=== PATIENT | female | born 1955 | race Caucasian/White ===

== ENCOUNTER 2020-01-20 15:45 | Emergency (ER) | payer OTHER, SELFPAY ==
[2020-01-20 16:20] VITALS: BP 215/117; PULSE 95; RESP 16; TEMP 36.7; O2SAT 98; BMI 35.2
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
[2020-01-20] MEDS: KETOROLAC 60 MG/2 ML VIAL 30 MG IM (17:31)
[2020-01-20] MEDS: CYCLOBENZAPRINE 10 MG TABLET PO (17:32)
[2020-01-20] MEDS: LIDOCAINE PATCH 1 EACH ADH..PATCH TOP (17:32)
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
[2020-01-20 18:35] VITALS: BP 209/94; PULSE 70; RESP 16; O2SAT 97
[2020-01-20 18:50] VITALS: BP 180/78; PULSE 63; RESP 16; O2SAT 98
--- NOTE | 2020-01-20 18:56 | PC.NURSE ---
Mariam Allen aware of discharge vital signs
== END 2020-01-20 18:56 | disposition home or self-care (01) ==
PROVIDERS: Emergency Provider Nurse Practitioner Family
DX: M25.512 Pain in left shoulder (principal); M25.552 Pain in left hip; M53.3 Sacrococcygeal disorders, not elsewhere classified; M62.838 Other muscle spasm; V89.2XXA Person injured in unspecified motor-vehicle accident, traffic, initial encounter
CPT/HCPCS: 72220; 73030; 73502; 96372; 99283; 99284; J1885

== ENCOUNTER 2020-11-26 16:30 | Emergency (ER) | payer MEDICARE, SELFPAY ==
[2020-11-26] VITALS (14 sets, daily range): BP systolic 140–178; BP diastolic 67–94; PULSE 91–114; RESP 24; TEMP 36.6; O2SAT 91–99
--- NOTE | 2020-11-26 | DI.CT.S_ITS ---
PROCEDURE: CT ABDOMEN PELVIS W CON INDICATIONS: ABDOMINAL PAIN, N/V, NO FLATUS TECHNIQUE: After the administration of intravenous contrast, 5 mm thick sections acquired from the diaphragm to the symphysis. 5 mm coronal and sagittal reformats were acquired. For radiation dose reduction, the following was used: automated exposure control, adjustment of mA and/or kV according to patient size. COMPARISON: None. FINDINGS: Image quality: Excellent. ABDOMEN: Lung bases: Mild bibasilar dependent atelectasis are seen posteriorly. Heart size is normal. Solid organs: Liver is enlarged and show normal enhancement. Gallbladder is within normal limits. Biliary system is non dilated. Pancreas enhances normally. Spleen is enlarged and shows normal enhancement. No adrenal nodules. Kidneys demonstrate normal size and enhancement, without hydronephrosis. Peritoneum and bowel: There is no evidence of bowel obstruction. A small hiatal hernia is seen. Appendix is visualized and is within normal limits. No gastric or small bowel wall thickening. There is suggestion of ascending colon wall thickening and edema with mild pericolonic fat stranding extending to involve hepatic flexure and proximal to mid transverse colon suggestive of infectious or inflammatory colitis. No abscess collection. No free fluid or free air. Nodes and vessels: No retroperitoneal or mesenteric adenopathy by size criteria. Aorta and inferior vena cava are normal in size. Miscellaneous: No ventral hernias. PELVIS: Genitourinary: Bladder wall thickness is normal. Uterus and bilateral adnexa show no gross abnormality. Miscellaneous: No inguinal hernias or adenopathy. Bones: No suspicious bony lesions. No vertebral body compression fractures. IMPRESSION: 1. Finding is suggestive of mild infectious inflammatory colitis involving ascending colon and proximal to mid transverse colon. 2. No evidence of bowel obstruction. Normal appendix. No abscess collection. No free fluid or free air. 3. Hepatosplenomegaly, no discrete hepatic or splenic lesion. Dictated by: Jonas Quezada M.D. on 11/26/2020 at 18:26 Approved by: Jonas Quezada M.D. on 11/26/2020 at 18:29
--- NOTE | 2020-11-26 16:43 | DI.RAD.S_ITS ---
PROCEDURE: XR CHEST 1V INDICATIONS: suspected sepsis TECHNIQUE: One view of the chest was acquired. COMPARISON: None. FINDINGS: Surgical changes and devices: None. Lungs and pleura: Question small focal infiltrate, left lung base. No pleural effusions or pneumothorax. Mediastinum: Mediastinal contours appear normal. Heart size is normal. Bones and chest wall: No suspicious bony lesions. Overlying soft tissues appear unremarkable. IMPRESSION: Question small focal left basilar infiltrate. Comment: It is noted that the patient is scheduled for a CT of the abdomen and pelvis. This area in the left lung base will be visible on the CT images. Dictated by: Margarito Prieto M.D. on 11/26/2020 at 16:30 Approved by: Margarito Prieto M.D. on 11/26/2020 at 16:32
--- NOTE | 2020-11-26 17:01 | ED_ITS ---
HPI - Nausea/Vomiting/Diarrhea General Chief complaint: Nausea/Vomiting/Diarrhea Stated complaint: NO ENERGY LEFT SIDE PAIN NOT EATING Time Seen by Provider: 11/26/20 16:35 Source: patient Mode of arrival: Ambulatory Limitations: no limitations History of Present Illness HPI Narrative: 65-year-old female nonsmoker without any significant medical history presents with a chief complaint of 2 weeks of increasing nausea and vomiting each time she eats. She states that she has become increasingly weak and is now dizzy and lightheaded. Anything she eats or drinks comes up. This morning she developed some left flank pain that has been persistent. She denies any provocation, palliation or radiation of this discomfort. She has not had a bowel movement in 2 days and states that her urine has become dark. She denies any chest pain or shortness of breath. She has had no fever or shaking chills. She denies any surgeries on her abdomen or history of cancer. MD complaint: nausea, vomiting and abdominal pain Onset (ago): day(s) Description of Vomiting: food contents Description of Diarrhea: none Associated Abdominal Pain: Yes Location of pain: left flank Severity: moderate Quality: cramping Pain Consistency: constant Relieving factors: none Exacerbating factors: none Related Data Previous Rx's Medication Instructions Recorded cyclobenzaprine 10 mg PO TID PRN #20 tab 01/20/20 amoxicillin-pot clavulanate 1 tab PO BID #20 tab 11/26/20 [Augmentin] ondansetron 4 mg PO TID-QID PRN #10 tab 11/26/20 Allergies Allergy/AdvReac Type Severity Reaction Status Date / Time Sulfa (Sulfonamide Allergy Verified 01/24/20 09:46 Antibiotics) Review of Systems Constitutional Constitutional: Denies chills, Reports fatigue, Denies fever(s), Denies frequent falls, Denies lethargy and Reports weakness Eyes Eyes: Denies change in vision, Denies eye discharge, Denies irritation and Denies loss of vision ENT Ears, Nose, Mouth, and Throat: Denies change in voice, Denies dizziness, Denies neck pain, Denies sore throat and Denies throat swelling Cardiovascular Cardiovascular: Denies chest pain, Denies irregular heart rhythm, Denies lightheadedness, Denies palpitations, Denies dyspnea, Denies dyspnea on exertion and Denies orthopnea Respiratory Respiratory: Denies cough, Denies dyspnea, Denies dyspnea on exertion and Denies wheezing Gastrointestinal Gastrointestinal: Denies abdominal pain, Reports change in bowel habits, Denies diarrhea, Reports nausea and Reports vomiting Genitourinary Genitourinary: Reports flank pain Genitourinary: Reports flank pain Comments: Dark urine Musculoskeletal Musculoskeletal: Denies neck pain and Denies numbness Integumentary/Breasts Skin/Breast: Denies pruritus, Denies erythema, Denies rash and Denies wounds Neurologic Neurologic: Denies behavioral changes, Denies confusion, Denies dizziness, Denies frequent falls, Denies loss of vision, Denies numbness and Reports weakness Psychiatric Psychiatric: Denies anxiety, Denies behavioral changes, Denies confusion, Denies depression, Denies homicidal ideation and Denies suicidal ideation Endocrine Endocrine: Reports fatigue, Denies flushing and Denies palpitations Hematologic/Lymphatic Hematologic/Lymphatic: Denies easy bruising Allergic/Immunologic Allergic/Immunologic: Denies urticaria, Denies throat swelling and Denies wheezing Patient History Social History Smoking Status: Unknown if ever smoked Smoking Status: Unknown if ever smoked alcohol intake frequency: holidays/special occasions only Substance Use Type: does not use Exam Narrative Exam Narrative: GENERAL: [65] year old patient appears stated age. Well-nourishe d, well-developed patient, in mild distress. HEAD: Atraumatic. Normocephalic. EYES: Pupils equal round and reactive. Extraocular motions intact. No scleral icterus. No injection or drainage. ENT: Dry mucous membranes Nose without bleeding, purulent drainage. Throat without erythema, tonsillar hypertrophy or exudate. Airway patent. NECK: Trachea midline. Non tender CARDIOVASCULAR: Regular rate and rhythm without murmurs, gallops, or rubs. RESPIRATORY: Clear to auscultation. Breath sounds equal bilaterally. No wheezes, rales, or rhonchi. GASTROINTESTINAL: Abdomen soft, non-tender, nondistended. EXTREMITIES: No edema or joint tenderness. BACK: Left flank pain to palpation NEURO: AOx3. SKIN: No rash or erythema of visible areas Initial Vital Signs Initial Vital Signs: Vital Signs Temperature 97.8 F 11/26/20 16:33 Pulse Rate 114 H 11/26/20 16:33 Respiratory Rate 24 11/26/20 16:33 Blood Pressure 178/94 H 11/26/20 16:33 Pulse Oximetry 99 11/26/20 16:33 Course Course Course Narrative: patient feeling significant improvement after above stated therapies. She is tolerating orals. No signs of sepsis. Ambulating through department without trouble. Return precautions given and questions answered to her apparent satisfaction. Orders Ordered: Discontinued Medications Sodium Chloride (Normal Saline 0.9%) 1,000 mls @ 1,000 mls/hr IV BOLUS ONE Stop: 11/26/20 17:42 Last Admin: 11/26/20 17:13 Dose: 1,000 mls/hr Documented by: BTONER Sodium Chloride (Normal Saline 0.9%) 1,000 mls @ 1,000 mls/hr IV BOLUS ONE Stop: 11/26/20 17:50 Last Admin: 11/26/20 17:13 Dose: 1,000 mls/hr Documented by: BTONER Ondansetron HCl (Ondansetron 4 Mg/2 Ml Inj) 4 mg IV NOW ONE Stop: 11/26/20 16:52 Last Admin: 11/26/20 17:13 Dose: 4 mg Documented by: BTONER Vital Signs Vital signs: Vital Signs - 8 hr 11/26/20 16:33 11/26/20 16:47 11/26/20 17:00 Temperature 97.8 F Pulse Rate 114 H 109 H 105 H Respiratory Rate 24 Blood Pressure 178/94 H 147/80 H Pulse Oximetry 99 95 95 11/26/20 17:24 11/26/20 17:30 11/26/20 17:32 Temperature Pulse Rate 95 H Respiratory Rate Blood Pressure 168/75 H 148/69 H Pulse Oximetry 91 11/26/20 18:00 11/26/20 18:17 11/26/20 18:30 Temperature Pulse Rate 98 H 98 H Respiratory Rate Blood Pressure 163/67 H Pulse Oximetry 96 96 MDM - Nausea/Vomiting/Diarrhea Lab Data Result diagrams: 11/26/20 16:55 11/26/20 16:55 Labs: Lab Results 11/26/20 11/26/20 11/26/20 Range/Units 16:55 16:55 16:55 WBC 4.6 (4.5-11.0) X10^3/uL RBC 5.38 H (4.0-5.2) X10^6/uL Hgb 14.5 (12.0-16.0) g/dL Hct 43.0 (36-46) % MCV 79.9 L (80-100) fL MCH 26.9 (26-34) PG MCHC 33.6 (30-36) % RDW 13.4 (11.6-14.8) % Plt Count 192 (150-400) X10^3/uL Neut % (Auto) 55.6 (50-75) % Lymph % (Auto) 25.4 (25-40) % [place] % (Auto) 10.8 (3-14) % Eos % (Auto) 7.0 H (2-4) % Baso % (Auto) 1.2 (0-2) % Neut # (Auto) 2600 (2150-8048) /uL Lymph # (Auto) 1200 (4944-5628) /uL [place] # (Auto) 500 (0-900) /uL Eos # (Auto) 300 (0-450) /uL Baso # (Auto) 100 (0-100) /uL PT 14.0 H (10.1-12.7) SECONDS INR 1.2 (0.9-1.3) APTT 35 (26.4-36.2) SECONDS Sodium 132 L (137-145) mmol/L Potassium 3.8 (3.4-5.1) mmol/L Chloride 102 (98-107) mmol/L Carbon Dioxide 19 L (22-32) mmol/L BUN 14 (7-17) mg/dL Creatinine 0.87 (0.52-1.04) mg/dL Estimated GFR > 60.0 (>60) mL/min BUN/Creatinine Ratio 16.1 (6-22) Glucose 115 H (80-110) mg/dL Lactate (0.7-2.1) mmol/L Calcium 9.1 (8.4-10.2) mg/dL Total Bilirubin 1.4 H (0.2-1.3) mg/dL AST 40 H (14-36) IU/L ALT 33 (<35) IU/L Alkaline Phosphatase 147 H (38-126) U/L Total Protein 7.0 (6.3-8.2) g/dL Albumin 3.8 (3.5-5.0) g/dL Globulin 3.2 (1.7-4.1) g/dL Albumin/Globulin Ratio 1.2 (1.0-2.8) Lipase 71 (23-300) U/L Procalcitonin 0.18 (<0.5) ng/mL Urine RBC (0-5/HPF) Urine WBC (0-5/HPF) Urine Bacteria (None) Hyaline Casts (None) Ur Culture Indicated? 11/26/20 11/26/20 Range/Units 16:55 19:36 WBC (4.5-11.0) X10^3/uL RBC (4.0-5.2) X10^6/uL Hgb (12.0-16.0) g/dL Hct (36-46) % MCV (80-100) fL MCH (26-34) PG MCHC (30-36) % RDW (11.6-14.8) % Plt Count (150-400) X10^3/uL Neut % (Auto) (50-75) % Lymph % (Auto) (25-40) % [place] % (Auto) (3-14) % Eos % (Auto) (2-4) % Baso % (Auto) (0-2) % Neut # (Auto) (4803-5980) /uL Lymph # (Auto) (8901-6838) /uL [place] # (Auto) (0-900) /uL Eos # (Auto) (0-450) /uL Baso # (Auto) (0-100) /uL PT (10.1-12.7) SECONDS INR (0.9-1.3) APTT (26.4-36.2) SECONDS Sodium (137-145) mmol/L Potassium (3.4-5.1) mmol/L Chloride (98-107) mmol/L Carbon Dioxide (22-32) mmol/L BUN (7-17) mg/dL Creatinine (0.52-1.04) mg/dL Estimated GFR (>60) mL/min BUN/Creatinine Ratio (6-22) Glucose (80-110) mg/dL Lactate 1.0 (0.7-2.1) mmol/L Calcium (8.4-10.2) mg/dL Total Bilirubin (0.2-1.3) mg/dL AST (14-36) IU/L ALT (<35) IU/L Alkaline Phosphatase (38-126) U/L Total Protein (6.3-8.2) g/dL Albumin (3.5-5.0) g/dL Globulin (1.7-4.1) g/dL Albumin/Globulin Ratio (1.0-2.8) Lipase (23-300) U/L Procalcitonin (<0.5) ng/mL Urine RBC None seen (0-5/HPF) Urine WBC None seen (0-5/HPF) Urine Bacteria None seen (None) Hyaline Casts 1-5/lpf (None) Ur Culture Indicated? Cult not indicated Urine Dip Bedside Urine Glucose Negative Bedside Urine Bilirubin - Negative Bedside Urine Ketone +++ 80 Urine Specific [place] 1.015 Bedside Urine Occult Blood - Negative Bedside Urine pH 6.0 Bedside Urine Protein +/- 15 Bedside Urine Urobilinogen - Negative Bedside Urine Nitrite - Negative Bedside Urine Leukocytes - Negative Esterase Imaging Data CT scan - abdomen/pelvis: Radiologist's Impression: Tavia Johns 65 F [address] [id number] Scan ReportSigned Patient: Tavia Johns#: [id number]: 5Acct:[id number]/Sex: 65 / FDate of Service: 11/26/20Loc: EDAccession Number: [id number] Procedure: CT abdomen pelvis w con Ordering Provider: Aden Rolle D.O. PROCEDURE: CT ABDOMEN PELVIS W CON INDICATIONS: ABDOMINAL PAIN, N/V, NO FLATUS TECHNIQUE: After the administration of intravenous contrast, 5 mm thick sections acquired from the diaphragm to the symphysis. 5 mm coronal and sagittal reformats were acquired. For radiation dose reduction, the following was used: automated exposure control, adjustment of mA and/or kV according to patient size. COMPARISON: None. FINDINGS: Image quality: Excellent. ABDOMEN: Lung bases: Mild bibasilar dependent atelectasis are seen posteriorly. Heart size is normal. Solid organs: Liver is enlarged and show normal enhancement. Gallbladder is within normal limits. Biliary system is non dilated. Pancreas enhances normally. Spleen is enlarged and shows normal enhancement. No adrenal nodules. Kidneys demonstrate normal size and enhancement, without hydronephrosis. Peritoneum and bowel: There is no evidence of bowel obstruction. A small hiatal hernia is seen. Appendix is visualized and is within normal limits. No gastric or small bowel wall thickening. There is suggestion of ascending colon wall thickening and edema with mild pericolonic fat stranding extending to involve hepatic flexure and proximal to mid transverse colon suggestive of infectious or inflammatory colitis. No abscess collection. No free fluid or free air. Nodes and vessels: No retroperitoneal or mesenteric adenopathy by size criteria. Aorta and inferior vena cava are normal in size. Miscellaneous: No ventral hernias. PELVIS: Genitourinary: Bladder wall thickness is normal. Uterus and bilateral adnexa show no gross abnormality. Miscellaneous: No inguinal hernias or adenopathy. Bones: No suspicious bony lesions. No vertebral body compression fractures. IMPRESSION: 1. Finding is suggestive of mild infectious inflammatory colitis involving ascending colon and proximal to mid transverse colon. 2. No evidence of bowel obstruction. Normal appendix. No abscess collection. No free fluid or free air. 3. Hepatosplenomegaly, no discrete hepatic or splenic lesion. Dictated by: Jonas Quezada M.D. on 11/26/2020 at 18:26 Approved by: Jonas Quezada M.D. on 11/26/2020 at 18:29 Discharge Plan Departure Patient Disposition: Home Clinical Impression: Colitis, Acute dehydration Instructions: DI for Dehydration -- Adult, DI for Colitis Activity Restrictions/Additional Instructions: *You have been diagnosed with [ dehydration and mild infection of your bowel. CT and labs are very reassuring ] *What to do: *Take medications as directed *Follow up with your primary care provider in 2-3 days, call for an appointment. Let them know you were seen in the Emergency Department and that we ask that you be seen in follow up *Return to ER if you should have any new, worsening or concerning symptoms, such as [ shaking chills, fever > 101F, worsening pain, persistent vomiting, or other bothersome symptoms] Prescriptions: New ondansetron 4 mg tablet,disintegrating 4 mg PO TID-QID PRN (Reason: nausea and vomiting) Qty: 10 RF: 0 amoxicillin-pot clavulanate [Augmentin] 875-125 mg tablet 1 tab PO BID Qty: 20 RF: 0 No Action cyclobenzaprine 10 mg tablet 10 mg PO TID PRN (Reason: muscle spasm) Qty: 20 RF: 0 Referrals: [facility] [Outside]
[2020-11-26 17:10] LABS: INR 1.2 (0.9-1.3)
[2020-11-26 17:13] LABS: PTT Partial Thromboplastin Tim 35 SECONDS (26.4-36.2)
[2020-11-26] MEDS: ONDANSETRON 4 MG/2 ML INJ IV (17:13)
[2020-11-26] MEDS: SODIUM CHLORIDE 0.9% 1,000 ML 1000 ML IV ×2 (17:13)
[2020-11-26 17:23] LABS: Add Manual Diff / Slide Review NO; Basophils Absolute Auto 100 /uL (0-100); Basophils Percent Auto 1.2 % (0-2); Eosinophils Absolute Auto 300 /uL (0-450); Hemoglobin 14.5 g/dL (12.0-16.0); Lymphocytes Absolute Auto 1200 /uL (1100-4500); Lymphocytes Percent Auto 25.4 % (25-40); Mean Corpuscular HGB Conc 33.6 % (30-36); Mean Corpuscular Hemoglobin 26.9 PG (26-34); Mean Corpuscular Volume 79.9 fL (80-100); Monocytes Absolute Auto 500 /uL (0-900); Monocytes Percent Auto 10.8 % (3-14); Neutrophils Absolute Auto 2600 /uL (1500-7000); Neutrophils Percent Auto 55.6 % (50-75); Platelet Count 192 X10^3/uL (150-400); Red Blood Cell Count 5.38 X10^6/uL (4.0-5.2); Red Cell Distribution Width 13.4 % (11.6-14.8); White Blood Cell Count 4.6 X10^3/uL (4.5-11.0)
[2020-11-26 17:54] LABS: Alanine Aminotransferase 33 IU/L (<35); Albumin 3.8 g/dL (3.5-5.0); Albumin Globulin Ratio 1.2 (1.0-2.8); Alkaline Phosphatase 147 U/L (38-126); Aspartate Aminotransferase 40 IU/L (14-36); BUN Creatinine Ratio 16.1 (6-22); Bilirubin Total 1.4 mg/dL (0.2-1.3); Blood Urea Nitrogen 14 mg/dL (7-17); Calcium 9.1 mg/dL (8.4-10.2); Carbon Dioxide 19 mmol/L (22-32); Chloride 102 mmol/L (98-107); Estimated Glomerular Filt Rate > 60.0 mL/min (>60); Globulin 3.2 g/dL (1.7-4.1); Glucose 115 mg/dL (80-110); HEMOLYSIS < 15 (0-50); Lipase 71 U/L (23-300); Potassium 3.8 mmol/L (3.4-5.1); Sodium 132 mmol/L (137-145)
[2020-11-26 18:09] LABS: Procalcitonin 0.18 ng/mL (<0.5)
[2020-11-26 20:01] LABS: Bacteria Urine None Seen; RBC Urine None Seen (0-5/HPF); WBC Urine None Seen (0-5/HPF)
[2020-11-26 20:13] LABS: Culture Indicated Urine Cult Not Indicated; Hyaline Casts Urine 1-5/LPF
== END 2020-11-26 20:23 | disposition home or self-care (01) ==
PROVIDERS: Emergency Provider Emergency Medicine
DX: K52.9 Noninfective gastroenteritis and colitis, unspecified (principal); E86.0 Dehydration; R42 Dizziness and giddiness; R53.1 Weakness; R10.9 Unspecified abdominal pain; R19.4 Change in bowel habit
CPT/HCPCS: 36415; 71045; 74177; 80053; 81003; 81015; 83605; 83690; 84145; 85025; 85610; 85730; 87040; 93005; 96361; 96374; 99284; J2405

== ENCOUNTER → 2022-08-13 08:03 | Outpatient (CLI) | payer MEDICARE, SELFPAY ==
--- NOTE | 2022-08-13 | DI.MG.S_ITS ---
BILATERAL DIGITAL SCREENING MAMMOGRAM 3D/2D WITH CAD: 08/13/2022 CLINICAL: Routine screening. No prior exams were available for comparison. There are scattered areas of fibroglandular density in both breasts (category b / 25%-50% glandular tissue). Current study was also evaluated with a Computer Aided Detection (CAD) system. No significant masses, calcifications, or other findings are seen in either breast. IMPRESSION: NEGATIVE There is no mammographic evidence of malignancy. A 1 year screening mammogram is recommended. Based on the Tyrer Cuzick model (a risk assessment model) the patient's lifetime risk is 3.9% and her 10 year risk is 2.0%. According to the ACR, ACS, and NCCN guidelines, an annual breast MRI exam along with mammogram is recommended if the patient's lifetime risk is 20% or greater. This exam was interpreted at Station ID: [id number]. NOTE: For mammograms, a report in lay terms will be sent to the patient. Approximately 15% of breast malignancies will not be visualized mammographically. In the management of a palpable breast mass, a negative mammogram must not discourage biopsy of a clinically suspicious lesion. Electronically Signed By: Gertrudis farley/rainer:08/13/2022 14:19:41 letter sent: Normal Exam ACR BI-RADS Category 1: Negative [id number]
== END ==
PROVIDERS: PCP Nurse Practitioner Family; Referring Provider Nurse Practitioner Family; Visit Provider Nurse Practitioner Family
DX: Z12.31 Encounter for screening mammogram for malignant neoplasm of breast (principal)
CPT/HCPCS: 77063; 77067

== ENCOUNTER → 2022-10-08 09:47 | Outpatient (CLI) | payer OTHER, SELFPAY ==
--- NOTE | 2022-10-08 | DI.US.S_ITS ---
PROCEDURE: US SOFT TISSUE HEAD AND NECK INDICATIONS: Localized enlarged lymph nodes TECHNIQUE: Real-time scanning was performed of the neck region of interest, with image documentation. COMPARISON: None. FINDINGS: Multiple enlarged left-sided cervical lymph nodes are seen measuring up to 13 mm in short axis diameter. IMPRESSION: Nonspecific left cervical lymphadenopathy. Approved by: Samir Irizarry M.D. on 10/08/2022 at 13:27
== END ==
PROVIDERS: PCP Nurse Practitioner Family; Referring Provider Nurse Practitioner Family; Visit Provider Physician Assistant
DX: R59.0 Localized enlarged lymph nodes (principal)
CPT/HCPCS: 76536

== ENCOUNTER 2023-03-26 18:45 | Emergency (ER) | payer OTHER, SELFPAY ==
[2023-03-26] VITALS (8 sets, daily range): BP systolic 153–185; BP diastolic 67–88; PULSE 65–91; RESP 18; TEMP 36.3; O2SAT 93–99; BMI 32.4
[2023-03-26] MEDS: KETOROLAC 30 MG/ML VIAL 15 MG IV (19:23)
[2023-03-26] MEDS: SODIUM CHLORIDE 0.9% 1,000 ML 1000 ML IV (19:23)
[2023-03-26] MEDS: ONDANSETRON 4 MG/2 ML INJ IV (19:24)
--- NOTE | 2023-03-26 19:28 | PC.NURSE ---
Blood pressure cuff inflated and patient hollered in pain, states she always have significant pain with blood pressure readings, requested blood pressure cuff be removed.
[2023-03-26 19:36] LABS: Bacteria Urine Occasional (0-1); Culture Indicated Urine Specimen Cultured; RBC Urine 0-1/HPF (0-5/HPF); Squamous Epithelial Cell Urine 5-10 /HPF (0-5/HPF); WBC Urine 5-10/HPF (0-5/HPF)
[2023-03-26 19:44] LABS: Add Manual Diff / Slide Review NO; Basophils Absolute Auto 100 /uL (0-100); Basophils Percent Auto 0.8 % (0-2); Eosinophils Absolute Auto 300 /uL (0-450); Eosinophils Percent Auto 3.8 % (2-4); Hematocrit 38.1 % (36-46); Lymphocytes Absolute Auto 2100 /uL (1100-4500); Lymphocytes Percent Auto 27.9 % (25-40); Mean Corpuscular HGB Conc 34.1 % (30-36); Mean Corpuscular Hemoglobin 27.7 PG (26-34); Mean Corpuscular Volume 81.2 fL (80-100); Monocytes Absolute Auto 900 /uL (0-900); Neutrophils Absolute Auto 4100 /uL (1500-7000); Neutrophils Percent Auto 55.5 % (50-75); Platelet Count 230 X10^3/uL (150-400); Red Cell Distribution Width 13.9 % (11.6-14.8); White Blood Cell Count 7.4 X10^3/uL (4.5-11.0)
[2023-03-26 19:57] LABS: Alanine Aminotransferase 14 IU/L (<35); Albumin 3.9 g/dL (3.5-5.0); Albumin Globulin Ratio 1.1 (1.0-2.8); Alkaline Phosphatase 123 U/L (38-126); Aspartate Aminotransferase 27 IU/L (14-36); Bilirubin Total 2.1 mg/dL (0.2-1.3); Blood Urea Nitrogen 10 mg/dL (7-17); Calcium 8.8 mg/dL (8.4-10.2); Carbon Dioxide 21 mmol/L (22-32); Chloride 102 mmol/L (98-107); Estimated Glomerular Filt Rate > 60 mL/min (>60); Globulin 3.7 g/dL (1.7-4.1); Glucose 91 mg/dL (80-110); HEMOLYSIS < 15 (0-50); Lipase 20 U/L (23-300); Potassium 3.8 mmol/L (3.4-5.1); Sodium 134 mmol/L (137-145); Total Protein 7.6 g/dL (6.3-8.2)
--- NOTE | 2023-03-26 20:18 | ED_ITS ---
HPI - Female Genitourinary <Leigh Mason DO - Last Filed: 03/29/23 07:30> General Chief complaint: Urogenital-Female Stated complaint: Thinks kidney stone Time Seen by Provider: 03/26/23 19:04 Source: patient Mode of arrival: Ambulatory Limitations: no limitations History of Present Illness HPI Narrative: This is a 67-year-old female with history of recurrent UTIs and pyelonephritis who presents with complaint of right flank starting Thursday, patient states pain is now radiating to the groin which is atypical for her. She states she had a urine sample at an outside facility and was told she did not have an infection and come to the ER. She denies fevers or chills. No chest pain or shortness of breath, no nausea or vomiting, she states she is had some diarrhea this week that is just been looser, no hematochezia, no melena. She states a lot of frequency more looser and consistency. She denies dysuria, urgency or frequency or incontinence. She states she does not typically get urinary symptoms but more flank pain with her kidney infections. No vaginal bleeding or discharge. She states it is atypical that it would hurt more down into the groin on the right side. She states it does not go down her leg. She states that this is more intense and started much stronger this evening and it was for the last several days. She denies any daily medications. Denies any recent surgeries. States she is allergic to sulfa and possibly steroids. Denies tobacco, alcohol or illicit. Mamta Major is her pcp. Related Data Previous Rx's Medication Instructions Recorded cyclobenzaprine 10 mg tablet 10 mg PO TID PRN muscle spasm #20 01/20/20 tabs hydrocodone 5 mg-acetaminophen 325 1 tab PO Q4-6H PRN pain #20 tabs 03/27/23 mg tablet ondansetron 4 mg disintegrating 4 mg PO TID-QID PRN nausea and 03/27/23 tablet vomiting #10 tabs Allergies Allergy/AdvReac Type Severity Reaction Status Date / Time Sulfa (Sulfonamide Allergy Verified 03/26/23 18:57 Antibiotics) Review of Systems <Leigh Mason DO - Last Filed: 03/29/23 07:30> Review of Systems ROS Unobtainable: All systems reviewed & are unremarkable except as noted in HPI and below Patient History <Leigh Mason DO - Last Filed: 03/29/23 07:30> Medical History HTN (hypertension) Surgical History History of tonsillectomy S/P bilateral breast reduction alcohol intake frequency: holidays/special occasions only Substance Use Type: does not use Exam <Leigh Mason DO - Last Filed: 03/29/23 07:30> Narrative Exam Narrative: GENERAL: Alert and oriented x three, well-nourished female in moderate distress. HEENT: Head normocephalic, atraumatic, EOMI, pupils reactive, face symmetric, moist mucous membranes NECK: Supple, full range of motion CARDIOVASCULAR: Regular rate and rhythm without murmurs, rubs or gallops. RESPIRATORY: Breath sounds equal bilaterally, no wheezes rales or rhonchi. ABDOMEN: Soft, positive for right lower quadrant tenderness. Normoactive bowel sounds all 4 quadrants. No guarding or rebound, rigidity, no mass : Mild right CVA tenderness bilaterally, non-tender on left. EXTREMITIES: Normal range of motion, no clubbing or edema. Neurovascularly intact NEUROLOGICAL: Cranial nerves II through XII grossly intact. Moving all extremities SKIN: Warm, dry, no petechiae, no rashes or lesions. Initial Vital Signs Initial Vital Signs: Vital Signs Temperature 97.4 F L 03/26/23 18:54 Pulse Rate 75 03/26/23 18:54 Respiratory Rate 18 03/26/23 18:54 Blood Pressure 153/67 H 03/26/23 18:54 Pulse Oximetry 99 03/26/23 18:54 Oxygen Delivery Method Room Air 03/26/23 18:54 <Aden Rolle DO - Last Filed: 03/27/23 13:48> Initial Vital Signs Initial Vital Signs: Vital Signs Temperature 97.4 F L 03/26/23 18:54 Pulse Rate 75 03/26/23 18:54 Respiratory Rate 18 03/26/23 18:54 Blood Pressure 153/67 H 03/26/23 18:54 Pulse Oximetry 99 03/26/23 18:54 Oxygen Delivery Method Room Air 03/26/23 18:54 Course <Leigh Mason DO - Last Filed: 03/29/23 07:30> Orders Ordered: Discontinued Medications Hydrocodone Bitart/Acetaminophen (Hydrocodone/Acet 5/325 Tablet) 1 tab PO NOW ONE Stop: 03/27/23 13:43 Last Admin: 03/27/23 13:45 Dose: 1 tab Documented By: NIMISHA Cephalexin HCl (Cephalexin 250 Mg Capsule) 500 mg PO NOW ONE Stop: 03/26/23 23:30 Last Admin: 03/26/23 23:36 Dose: 500 mg Documented By: YAEL Hydromorphone HCl (Hydromorphone 0.5 Mg Inj) 0.5 mg IV NOW ONE Stop: 03/27/23 09:21 Last Admin: 03/27/23 09:38 Dose: 0.5 mg Documented By: NIMISHA Sodium Chloride (Normal Saline 0.9%) 1,000 mls @ 1,000 mls/hr IV BOLUS ONE Stop: 03/26/23 20:03 Last Infusion: 03/26/23 20:40 Dose: 0 mls/hr Documented By: Admin: 03/26/23 19:23 Dose: 1,000 mls/hr Documented By: ZULEMA Piperacillin Sod/Tazobactam (Sod 4.5 gm/ Sodium Chloride) 100 mls @ 200 mls/hr IV NOW ONE Stop: 03/27/23 02:28 Last Infusion: 03/27/23 03:21 Dose: 0 mls/hr Documented By: Admin: 03/27/23 02:46 Dose: 200 mls/hr Documented By: CHELSIE Sodium Chloride (Normal Saline 0.9%) 1,000 mls @ 125 mls/hr IV CONT DAVID Last Infusion: 03/27/23 12:27 Dose: 0 mls/hr Documented By: Admin: 03/27/23 03:08 Dose: 125 mls/hr Documented By: CHELSIE Dextrose (D10w) 250 mls @ 999 mls/hr IV PRN PRN PRN Reason: Hypoglycemia Last Infusion: 03/27/23 10:22 Dose: 0 mls/hr Documented By: Admin: 03/27/23 10:02 Dose: 999 mls/hr Documented By: NIMISHA Ketorolac Tromethamine (Ketorolac 30 Mg/Ml Vial) 15 mg IV NOW ONE Stop: 03/26/23 19:05 Last Admin: 03/26/23 19:23 Dose: 15 mg Documented By: ZULEMA Ketorolac Tromethamine (Ketorolac 30 Mg/Ml Vial) 15 mg IV Q6H PRN PRN Reason: pain Stop: 04/01/23 00:32 Last Admin: 03/27/23 09:15 Dose: 15 mg Documented By: Admin: 03/27/23 00:40 Dose: 15 mg Documented By: CHELSIE Morphine Sulfate (Morphine 4 Mg/Ml Inj) 4 mg IV NOW ONE Stop: 03/27/23 02:27 Last Admin: 03/27/23 02:39 Dose: 4 mg Documented By: CHELSIE Ondansetron HCl (Ondansetron 4 Mg/2 Ml Inj) 4 mg IV NOW PRN PRN Reason: Nausea And Vomiting Last Admin: 03/26/23 19:24 Dose: 4 mg Documented By: ZULEMA Polyethylene Glycol (Polyethylene Glycol 3350 17 Gm Powd.Pack) 17 gm PO NOW ONE Stop: 03/27/23 02:42 Last Admin: 03/27/23 02:58 Dose: 17 gm Documented By: CHELSIE Vital Signs Vital signs: Vital Signs - 8 hr 03/27/23 06:00 03/27/23 06:00 03/27/23 06:30 Pulse Rate 75 79 Respiratory Rate 15 17 Blood Pressure 159/75 H Pulse Oximetry 98 96 Oxygen Delivery Method Nasal Cannula Nasal Cannula Oxygen Flow Rate 1 1 03/27/23 07:00 03/27/23 07:00 03/27/23 07:30 Pulse Rate 81 82 Respiratory Rate 16 18 Blood Pressure 160/74 H Pulse Oximetry 96 93 Oxygen Delivery Method Nasal Cannula Oxygen Flow Rate 1 03/27/23 08:00 03/27/23 08:30 03/27/23 09:00 Pulse Rate 87 84 90 Respiratory Rate 20 19 22 Blood Pressure Pulse Oximetry 93 94 94 Oxygen Delivery Method Oxygen Flow Rate 03/27/23 09:12 03/27/23 09:12 03/27/23 09:18 Pulse Rate 91 H Respiratory Rate 10 L Blood Pressure 181/81 H 196/89 H Pulse Oximetry 100 Oxygen Delivery Method Oxygen Flow Rate 03/27/23 09:18 03/27/23 09:30 03/27/23 10:00 Pulse Rate 83 87 Respiratory Rate 19 18 Blood Pressure 147/84 H Pulse Oximetry 99 92 Oxygen Delivery Method Oxygen Flow Rate 03/27/23 10:00 03/27/23 10:19 03/27/23 11:06 Pulse Rate 81 90 Respiratory Rate 23 20 Blood Pressure 141/69 H Pulse Oximetry 99 97 Oxygen Delivery Method Oxygen Flow Rate 03/27/23 11:06 03/27/23 11:30 03/27/23 12:00 Pulse Rate 98 H 94 H Respiratory Rate Blood Pressure 155/73 H Pulse Oximetry 91 92 Oxygen Delivery Method Oxygen Flow Rate 03/27/23 12:00 03/27/23 12:30 03/27/23 13:00 Pulse Rate 76 72 Respiratory Rate Blood Pressure 157/74 H Pulse Oximetry 91 92 Oxygen Delivery Method Oxygen Flow Rate 03/27/23 13:00 Pulse Rate 81 Respiratory Rate Blood Pressure Pulse Oximetry 91 Oxygen Delivery Method Oxygen Flow Rate <Aden Rolle, - Last Filed: 03/27/23 13:48> Orders Ordered: Discontinued Medications Hydrocodone Bitart/Acetaminophen (Hydrocodone/Acet 5/325 Tablet) 1 tab PO NOW ONE Stop: 03/27/23 13:43 Last Admin: 03/27/23 13:45 Dose: 1 tab Documented By: NIMISHA Cephalexin HCl (Cephalexin 250 Mg Capsule) 500 mg PO NOW ONE Stop: 03/26/23 23:30 Last Admin: 03/26/23 23:36 Dose: 500 mg Documented By: YAEL Hydromorphone HCl (Hydromorphone 0.5 Mg Inj) 0.5 mg IV NOW ONE Stop: 03/27/23 09:21 Last Admin: 03/27/23 09:38 Dose: 0.5 mg Documented By: NIMISHA Sodium Chloride (Normal Saline 0.9%) 1,000 mls @ 1,000 mls/hr IV BOLUS ONE Stop: 03/26/23 20:03 Last Infusion: 03/26/23 20:40 Dose: 0 mls/hr Documented By: Admin: 03/26/23 19:23 Dose: 1,000 mls/hr Documented By: AT Piperacillin Sod/Tazobactam (Sod 4.5 gm/ Sodium Chloride) 100 mls @ 200 mls/hr IV NOW ONE Stop: 03/27/23 02:28 Last Infusion: 03/27/23 03:21 Dose: 0 mls/hr Documented By: Admin: 03/27/23 02:46 Dose: 200 mls/hr Documented By: CHELSIE Sodium Chloride (Normal Saline 0.9%) 1,000 mls @ 125 mls/hr IV CONT DAVID Last Infusion: 03/27/23 12:27 Dose: 0 mls/hr Documented By: Admin: 03/27/23 03:08 Dose: 125 mls/hr Documented By: CHELSIE Dextrose (D10w) 250 mls @ 999 mls/hr IV PRN PRN PRN Reason: Hypoglycemia Last Infusion: 03/27/23 10:22 Dose: 0 mls/hr Documented By: Admin: 03/27/23 10:02 Dose: 999 mls/hr Documented By: NIMISHA Ketorolac Tromethamine (Ketorolac 30 Mg/Ml Vial) 15 mg IV NOW ONE Stop: 03/26/23 19:05 Last Admin: 03/26/23 19:23 Dose: 15 mg Documented By: ZULEMA Ketorolac Tromethamine (Ketorolac 30 Mg/Ml Vial) 15 mg IV Q6H PRN PRN Reason: pain Stop: 04/01/23 00:32 Last Admin: 03/27/23 09:15 Dose: 15 mg Documented By: Admin: 03/27/23 00:40 Dose: 15 mg Documented By: CHELSIE Morphine Sulfate (Morphine 4 Mg/Ml Inj) 4 mg IV NOW ONE Stop: 03/27/23 02:27 Last Admin: 03/27/23 02:39 Dose: 4 mg Documented By: CHELSIE Ondansetron HCl (Ondansetron 4 Mg/2 Ml Inj) 4 mg IV NOW PRN PRN Reason: Nausea And Vomiting Last Admin: 03/26/23 19:24 Dose: 4 mg Documented By: ZULEMA Polyethylene Glycol (Polyethylene Glycol 3350 17 Gm Powd.Pack) 17 gm PO NOW ONE Stop: 03/27/23 02:42 Last Admin: 03/27/23 02:58 Dose: 17 gm Documented By: CHELSIE Vital Signs Vital signs: Vital Signs - 8 hr 03/27/23 06:00 03/27/23 06:00 03/27/23 06:30 Pulse Rate 75 79 Respiratory Rate 15 17 Blood Pressure 159/75 H Pulse Oximetry 98 96 Oxygen Delivery Method Nasal Cannula Nasal Cannula Oxygen Flow Rate 1 1 03/27/23 07:00 03/27/23 07:00 03/27/23 07:30 Pulse Rate 81 82 Respiratory Rate 16 18 Blood Pressure 160/74 H Pulse Oximetry 96 93 Oxygen Delivery Method Nasal Cannula Oxygen Flow Rate 1 03/27/23 08:00 03/27/23 08:30 03/27/23 09:00 Pulse Rate 87 84 90 Respiratory Rate 20 19 22 Blood Pressure Pulse Oximetry 93 94 94 Oxygen Delivery Method Oxygen Flow Rate 03/27/23 09:12 03/27/23 09:12 03/27/23 09:18 Pulse Rate 91 H Respiratory Rate 10 L Blood Pressure 181/81 H 196/89 H Pulse Oximetry 100 Oxygen Delivery Method Oxygen Flow Rate 03/27/23 09:18 03/27/23 09:30 03/27/23 10:00 Pulse Rate 83 87 Respiratory Rate 19 18 Blood Pressure 147/84 H Pulse Oximetry 99 92 Oxygen Delivery Method Oxygen Flow Rate 03/27/23 10:00 03/27/23 10:19 03/27/23 11:06 Pulse Rate 81 90 Respiratory Rate 23 20 Blood Pressure 141/69 H Pulse Oximetry 99 97 Oxygen Delivery Method Oxygen Flow Rate 03/27/23 11:06 03/27/23 11:30 03/27/23 12:00 Pulse Rate 98 H 94 H Respiratory Rate Blood Pressure 155/73 H Pulse Oximetry 91 92 Oxygen Delivery Method Oxygen Flow Rate 03/27/23 12:00 03/27/23 12:30 03/27/23 13:00 Pulse Rate 76 72 Respiratory Rate Blood Pressure 157/74 H Pulse Oximetry 91 92 Oxygen Delivery Method Oxygen Flow Rate 03/27/23 13:00 Pulse Rate 81 Respiratory Rate Blood Pressure Pulse Oximetry 91 Oxygen Delivery Method Oxygen Flow Rate MDM - Female Genitourinary <Leigh Mason, - Last Filed: 03/29/23 07:30> Lab Data 03/26/23 19:29 03/27/23 07:28 Labs: Lab Results 03/26/23 03/26/23 03/26/23 Range/Units 19:10 19:29 19:29 WBC 7.4 (4.5-11.0) X10^3/uL RBC 4.70 (4.0-5.2) X10^6/uL Hgb 13.0 (12.0-16.0) g/dL Hct 38.1 (36-46) % MCV 81.2 (80-100) fL MCH 27.7 (26-34) PG MCHC 34.1 (30-36) % RDW 13.9 (11.6-14.8) % Plt Count 230 (150-400) X10^3/uL Neut % (Auto) 55.5 (50-75) % Lymph % (Auto) 27.9 (25-40) % Churchill % (Auto) 12.0 (3-14) % Eos % (Auto) 3.8 (2-4) % Baso % (Auto) 0.8 (0-2) % Neut # (Auto) 4100 (6038-5884) /uL Lymph # (Auto) 2100 (5431-5752) /uL Churchill # (Auto) 900 (0-900) /uL Eos # (Auto) 300 (0-450) /uL Baso # (Auto) 100 (0-100) /uL Sodium 134 L (137-145) mmol/L Potassium 3.8 (3.4-5.1) mmol/L Chloride 102 (98-107) mmol/L Carbon Dioxide 21 L (22-32) mmol/L BUN 10 (7-17) mg/dL Creatinine 0.77 (0.52-1.04) mg/dL Estimated GFR > 60 (>60) mL/min BUN/Creatinine Ratio 13.0 (6-22) Glucose 91 (80-110) mg/dL Calcium 8.8 (8.4-10.2) mg/dL Total Bilirubin 2.1 H (0.2-1.3) mg/dL AST 27 (14-36) IU/L ALT 14 (<35) IU/L Alkaline Phosphatase 123 (38-126) U/L Total Protein 7.6 (6.3-8.2) g/dL Albumin 3.9 (3.5-5.0) g/dL Globulin 3.7 (1.7-4.1) g/dL Albumin/Globulin Ratio 1.1 (1.0-2.8) Lipase 20 L (23-300) U/L Urine RBC 0-1/hpf (0-5/HPF) Urine WBC 5-10/hpf H (0-5/HPF) Ur Squamous Epith Cells 5-10 /hpf H (0-5/HPF) Urine Bacteria Occasional (0-1) (None) Ur Culture Indicated? Specimen cultured 03/27/23 Range/Units 07:28 WBC (4.5-11.0) X10^3/uL RBC (4.0-5.2) X10^6/uL Hgb (12.0-16.0) g/dL Hct (36-46) % MCV (80-100) fL MCH (26-34) PG MCHC (30-36) % RDW (11.6-14.8) % Plt Count (150-400) X10^3/uL Neut % (Auto) (50-75) % Lymph % (Auto) (25-40) % Churchill % (Auto) (3-14) % Eos % (Auto) (2-4) % Baso % (Auto) (0-2) % Neut # (Auto) (6608-4329) /uL Lymph # (Auto) (6790-7716) /uL Churchill # (Auto) (0-900) /uL Eos # (Auto) (0-450) /uL Baso # (Auto) (0-100) /uL Sodium 135 L (137-145) mmol/L Potassium 4.1 (3.4-5.1) mmol/L Chloride 104 (98-107) mmol/L Carbon Dioxide 24 (22-32) mmol/L BUN 9 (7-17) mg/dL Creatinine 0.75 (0.52-1.04) mg/dL Estimated GFR > 60 (>60) mL/min BUN/Creatinine Ratio 12.0 (6-22) Glucose 78 L (80-110) mg/dL Calcium 8.1 L (8.4-10.2) mg/dL Total Bilirubin 1.7 H (0.2-1.3) mg/dL AST 26 (14-36) IU/L ALT 13 (<35) IU/L Alkaline Phosphatase 102 (38-126) U/L Total Protein 7.0 (6.3-8.2) g/dL Albumin 3.5 (3.5-5.0) g/dL Globulin 3.5 (1.7-4.1) g/dL Albumin/Globulin Ratio 1.0 (1.0-2.8) Lipase (23-300) U/L Urine RBC (0-5/HPF) Urine WBC (0-5/HPF) Ur Squamous Epith Cells (0-5/HPF) Urine Bacteria (None) Ur Culture Indicated? Point of Care Testing Glucose POC 81 Urine Dip Bedside Urine Glucose Negative Bedside Urine Bilirubin - Negative Bedside Urine Ketone +++ 80 Urine Specific [place] 1.010 Bedside Urine Occult Blood ++ Bedside Urine pH 7.0 Bedside Urine Protein - Negative Bedside Urine Urobilinogen - Negative Bedside Urine Nitrite - Negative Bedside Urine Leukocytes - Negative Esterase Imaging Data CT scan - abdomen/pelvis: Radiologist's Impression: Tavia Johns??67??F??1955 ? Allergy/Adv: Sulfa (Sulfonamide Antibiotics) (More??) Close Abdomen/Pelvis CT (Signed) Kane Murdock - 03/26/23 Head/Neck Ultrasound (Signed) Samir Irizarry - 10/08/22 Mammogram Screening (Signed) Gertrudis Jc - 08/13/22 Chest X-Ray (Signed) Margarito Prieto - 11/26/20 Abdomen/Pelvis CT (Signed) Jonas Quezada - 11/26/20 Shoulder X-Ray (Signed) Jonas Quezada - 01/20/20 Sacrum and Coccyx X-Ray (Signed) Jonas Quezada - 01/20/20 Hip X-Ray (Signed) Jonas Quezada - 01/20/20 Launch?[place] [address] CT Scan Report Signed Patient: Tavia Johns MR#: [id number] : 1955 Acct:[id number] Age/Sex: 67 / F Date of Service: 03/26/23 Loc: ED Accession Number: [id number] ?? Procedure: CT abdomen pelvis w con Ordering Provider: Leigh Mason D.O. PROCEDURE:? CT ABDOMEN PELVIS W CON ? INDICATIONS:? R flank and RLQ pain ? TECHNIQUE:? After the administration of IV contrast, axial sections were acquired from the lung bases to the pubic symphysis.? Coronal and sagittal reformats were performed.? For radiation dose reduction, the following was used:? automated exposure control, adjustment of mA and/or kV according to patient size. ? COMPARISON:? [facility], CT, CT ABDOMEN PELVIS W CON, 11/26/2020, 18:02. ? FINDINGS:? Image quality:? Excellent.? ? Lung bases:? There is scarring and atelectasis in the lung bases.? ? Heart:? Heart is normal in size.? There are mildly enlarged retrocrural lymph nodes measuring up to 1.0 cm. ? ? ABDOMEN: Liver:? No mass lesion. Gallbladder:? The gallbladder is distended without calcified gallstones or wall thickening. Biliary ducts:? There is mild biliary ductal dilatation with the common duct measuring up to approximately 1.0 cm in tapering distally into the ampulla of Vater.? There i s mild soft tissue enhancement along the distal common bile duct and within the descending portion of the duodenum adjacent to the ampulla.? There is an associated duodenal diverticulum. Pancreas:? Mild enhancement of the uncinate process and pancreatic head also demonstrated along the ampulla without a discrete mass.? No pancreatic duct dilatation.? There is a small amount of adjacent peripancreatic and periduodenal free fluid. Spleen:? Normal in size.? ? Adrenal Glands:? No adrenal nodules.? ? Kidneys and Ureters:? No hydronephrosis.? ? ? Stomach and Bowel:? As noted above, there is mild enhancement of the descending portion of the duodenum with an associated duodenal diverticulum.? Stomach, small bowel loops, and colon are otherwise normal in caliber and wall thickness.? The appendix is normal.? Peritoneum:? No abnormal intraperitoneal fluid.? No free air.? ? Ventral Wall: ? No hernia.? Abdominal Nodes:? There are new enlarged mesenteric, buffy hepatis and retroperitoneal lymph nodes.? A event sales representative buffy hepatis node measures up to 1.3 cm in short axis on series 2, image 25. A event sales representative aortic caval node measures up to 1.6 cm on series 2, image 35. A event sales representative mesenteric node measures up to 1.1 cm on series 2, image 51.? Vessels:? Aorta and inferior vena cava are normal in size.? ? PELVIS: Pelvic Organs:? Unremarkable.? ? Bladder:? Unremarkable.? ? Pelvic Nodes:? There are bilateral enlarged inguinal lymph nodes including a event sales representative right inguinal node measuring up to 1.2 cm on series 2, image 82. There also enlarged pelvic sidewall lymph nodes including a event sales representative left pelvic sidewall node measuring 1.1 cm on series 2, image 69.? Miscellaneous: No inguinal hernias are seen. ? ? ? Bones:? Visualized osseous structures demonstrate no suspicious focal lesions. ? IMPRESSION:? ? 1. New retroperitoneal, buffy hepatis, mesenteric, and inguinal lymphadenopathy consistent with metastatic disease or lymphoma. ? 2. Mild enhancement along the distal common bile duct at the ampulla as well as enhancement of the descending portion of the duodenum which demonstrates an associated duodenal diverticulum.? Mild enhancement also demonstrated within the adjacent pancreas without pancreatic duct dilatation or discrete mass.? Mild adjacent free fluid n oted.? The differential includes sequelae of groove pancreatitis, a duodenitis/duodenal diverticulitis, or cholangitis.? Although no discrete mass is visualized, consider follow-up evaluation with a pancreatic protocol MRI. ? ? ? Dictated by: Kane Murdock M.D. on 03/26/2023 at 22:12 ? ? Approved by: Kane Murdock M.D. on 03/26/2023 at 22:22?? [facility] Narrative Medical decision making narrative: This is a 67-year-old female with complaint of right flank lower abdominal pain who presents with history of UTIs recurrent pyelo. Patient is also tender in the right anterior abdomen particularly lower abdomen. Point of care urine shows blood, ketones but no nitrates or leuks, 5-10 squamous epithelials. Patient's CBC, CMP and lipase show elevated bilirubin 2.1 was 1.4 on 11/26/2020, sodium 134 lipase is 20. Discussed with patient based on exam would CT abdomen and pelvis shows new retroperitoneal, buffy hepatis, mesenteric and inguinal lymphadenopathy as well as enhancement along the distal common bile duct at the ampulla and descending portion duodenum associated with duodenal diverticulum and some enhancement within the pancreas without duct dilation or discrete mass. Mild adjacent free fluid noted. Differential includes groove pancreatitis, duodenitis, duodenal diverticulitis or cholangitis no discrete masses visualized consider evaluation with pancreatic protocol MRI. Patient is feeling much better after fluids, Zofran and Toradol she states pain is a dull ache but still present but defers anything additional. Discussed findings with patient. She feels much better, her right groin pain may have b een UTI but with her findings on CT would like to hold her for MRI in the morning. Patient is agreeable. Patient pain recurred on right side, additional dose of Toradol with relief. Pain on Left lower back on recheck, patient states not on right. Given dose of Morphine. Patient signed out to Dr. Rolle while awaiting MRI and results. CC: 67-year-old female with episodic back pain concerning for kidney stone Complicating co-morbidities: Data collected from: Patient Medical records reviewed: Prior notes reviewed in our EMR Differential considered, but not limited to: Kidney stone versus musculoskeletal versus pyelonephritis versus other Exam documented above, pertinent findings include: Lab Test results independently reviewed as above. Pertinent findings: No significant abnormal vitals requiring a specific intervention Independently reviewed EKG as above Imaging studies independently reviewed: CT of abdomen and pelvis demonstrates new retroperitoneal, mesenteric and inguinal lymphadenopathy consistent with metastatic disease or lymphoma. There is some mild enhancement along the distal common bile duct without obvious dilatation or discrete mass. MRCP shows a distended gallbladder without gallstones. Mild dilatation of the common bile duct with no intraductal stones or masses creating obstruction. Pancreatic duct is slightly prominent at 3 mm, no clear etiology. Retroperitoneal lymphadenopathy Treatments: Patient given IV fluids, Zofran, Toradol, Dilaudid. Initially antibiotics given given concern for abdominal pathology, also questionable evidence of UTI. Patient states very clearly she has no signs of urine infection such as dysuria, frequency or urgency. Would prefer to hold off on antibiotics until culture returns. Re-evaluations: Symptoms improve with above-stated therapies Discussion: Patient with concerns for kidney stone and episodic, if not colicky back pain in the absence of obvious kidney stone or urinary tract infection, no bowel obstruction or surgical abnormality on multiple imaging modalities. She does have a newly discovered widespread lymphadenopathy in the retroperitoneal and port hepato it is concerning for malignancy. She does have lymphoma in the family. Pain is controlled, she is tolerating orals. She is appropriate for discharge and will follow up with her primary care provider to pursue this diagnosis. She is given return precautions which include but are not limited to increasing pain, persistent vomiting, fever or other concerning symptoms Disposition: see below, along with detailed discharge instructions that have been reviewed with patient as well as indications for ED re-evaluation and additional outpatient follow up <Aden Rolle, DO - Last Filed: 03/27/23 13:48> Lab Data Labs: Lab Results 03/26/23 03/26/23 03/26/23 Range/Units 19:10 19:29 19:29 WBC 7.4 (4.5-11.0) X10^3/uL RBC 4.70 (4.0-5.2) X10^6/uL Hgb 13.0 (12.0-16.0) g/dL Hct 38.1 (36-46) % MCV 81.2 (80-100) fL MCH 27.7 (26-34) PG MCHC 34.1 (30-36) % RDW 13.9 (11.6-14.8) % Plt Count 230 (150-400) X10^3/uL Neut % (Auto) 55.5 (50-75) % Lymph % (Auto) 27.9 (25-40) % Churchill % (Auto) 12.0 (3-14) % Eos % (Auto) 3.8 (2-4) % Baso % (Auto) 0.8 (0-2) % Neut # (Auto) 4100 (6060-0489) /uL Lymph # (Auto) 2100 (3725-7932) /uL Churchill # (Auto) 900 (0-900) /uL Eos # (Auto) 300 (0-450) /uL Baso # (Auto) 100 (0-100) /uL Sodium 134 L (137-145) mmol/L Potassium 3.8 (3.4-5.1) mmol/L Chloride 102 (98-107) mmol/L Carbon Dioxide 21 L (22-32) mmol/L BUN 10 (7-17) mg/dL Creatinine 0.77 (0.52-1.04) mg/dL Estimated GFR > 60 (>60) mL/min BUN/Creatinine Ratio 13.0 (6-22) Glucose 91 (80-110) mg/dL Calcium 8.8 (8.4-10.2) mg/dL Total Bilirubin 2.1 H (0.2-1.3) mg/dL AST 27 (14-36) IU/L ALT 14 (<35) IU/L Alkaline Phosphatase 123 (38-126) U/L Total Protein 7.6 (6.3-8.2) g/dL Albumin 3.9 (3.5-5.0) g/dL Globulin 3.7 (1.7-4.1) g/dL Albumin/Globulin Ratio 1.1 (1.0-2.8) Lipase 20 L (23-300) U/L Urine RBC 0-1/hpf (0-5/HPF) Urine WBC 5-10/hpf H (0-5/HPF) Ur Squamous Epith Cells 5-10 /hpf H (0-5/HPF) Urine Bacteria Occasional (0-1) (None) Ur Culture Indicated? Specimen cultured 03/27/23 Range/Units 07:28 WBC (4.5-11.0) X10^3/uL RBC (4.0-5.2) X10^6/uL Hgb (12.0-16.0) g/dL Hct (36-46) % MCV (80-100) fL MCH (26-34) PG MCHC (30-36) % RDW (11.6-14.8) % Plt Count (150-400) X10^3/uL Neut % (Auto) (50-75) % Lymph % (Auto) (25-40) % [place] % (Auto) (3-14) % Eos % (Auto) (2-4) % Baso % (Auto) (0-2) % Neut # (Auto) (7965-1413) /uL Lymph # (Auto) (9094-2467) /uL Churchill # (Auto) (0-900) /uL Eos # (Auto) (0-450) /uL Baso # (Auto) (0-100) /uL Sodium 135 L (137-145) mmol/L Potassium 4.1 (3.4-5.1) mmol/L Chloride 104 (98-107) mmol/L Carbon Dioxide 24 (22-32) mmol/L BUN 9 (7-17) mg/dL Creatinine 0.75 (0.52-1.04) mg/dL Estimated GFR > 60 (>60) mL/min BUN/Creatinine Ratio 12.0 (6-22) Glucose 78 L (80-110) mg/dL Calcium 8.1 L (8.4-10.2) mg/dL Total Bilirubin 1.7 H (0.2-1.3) mg/dL AST 26 (14-36) IU/L ALT 13 (<35) IU/L Alkaline Phosphatase 102 (38-126) U/L Total Protein 7.0 (6.3-8.2) g/dL Albumin 3.5 (3.5-5.0) g/dL Globulin 3.5 (1.7-4.1) g/dL Albumin/Globulin Ratio 1.0 (1.0-2.8) Lipase (23-300) U/L Urine RBC (0-5/HPF) Urine WBC (0-5/HPF) Ur Squamous Epith Cells (0-5/HPF) Urine Bacteria (None) Ur Culture Indicated? Point of Care Testing Glucose POC 81 Urine Dip Bedside Urine Glucose Negative Bedside Urine Bilirubin - Negative Bedside Urine Ketone +++ 80 Urine Specific [place] 1.010 Bedside Urine Occult Blood ++ Bedside Urine pH 7.0 Bedside Urine Protein - Negative Bedside Urine Urobilinogen - Negative Bedside Urine Nitrite - Negative Bedside Urine Leukocytes - Negative Esterase MDM Narrative Medical decision making narrative: This is a 67-year-old female with complaint of right flank lower abdominal pain who presents with history of UTIs recurrent pyelo. Patient is also tender in the right anterior abdomen particularly lower abdomen. Point of care urine show s blood, ketones but no nitrates or leuks, 5-10 squamous epithelials. Patient's CBC, CMP and lipase show elevated bilirubin 2.1 was 1.4 on 11/26/2020, sodium 134 lipase is 20. Discussed with patient based on exam would CT abdomen and pelvis shows new retroperitoneal, buffy hepatis, mesenteric and inguinal lymphadenopathy as well as enhancement along the distal common bile duct at the ampulla and descending portion duodenum associated with duodenal diverticulum and some enhancement within the pancreas without duct dilation or discrete mass. Mild adjacent free fluid noted. Differential includes groove pancreatitis, duodenitis, duodenal diverticulitis or cholangitis no discrete masses visualized consider evaluation with pancreatic protocol MRI. Patient is feeling much better after fluids, Zofran and Toradol she states pain is a dull ache but still present but defers anything additional. Discussed findings with patient. She feels much better, her right groin pain may have been UTI but with her findings on CT would like to hold her for MRI in the morning. Patient is agreeable. Patient pain recurred on right side, additional dose of Toradol with relief. Pain on Left lower back on recheck, patient states not on right. Given dose of Morphine. Patient signed out to Dr. Rolle while awaiting MRI results. CC: 67-year-old female with episodic back pain concerning for kidney stone Complicating co-morbidities: Data collected from: Patient Medical records reviewed: Prior notes reviewed in our EMR Differential considered, but not limited to: Kidney stone versus musculoskeletal versus pyelonephritis versus other Exam documented above, pertinent findings include: Lab Test results independently reviewed as above. Pertinent findings: No significant abnormal vitals requiring a specific intervention Independently reviewed EKG as above Imaging studies independently reviewed: CT of abdomen and pelvis demonstrates new retroperitoneal, mesenteric and inguinal lymphadenopathy consistent with metastatic disease or lymphoma. There is some mild enhancement along the distal common bile duct without obvious dilatation or discrete mass. MRCP shows a distended gallbladder without gallstones. Mild dilatation of the common bile duct with no intraductal stones or masses creating obstruction. Pancreatic duct is slightly prominent at 3 mm, no clear etiology. Retroperitoneal lymphadenopathy Treatments: Patient given IV fluids, Zofran, Toradol, Dilaudid. Initially antibiotics given given concern for abdominal pathology, also questionable evidence of UTI. Patient states very clearly she has no signs of urine infection such as dysuria, frequency or urgency. Would prefer to hold off on antibiotics until culture returns. Re-evaluations: Symptoms improve with above-stated therapies Discussion: Patient with concerns for kidney stone and episodic, if not colicky back pain in the absence of obvious kidney stone or urinary tract infection, no bowel obstruction or surgical abnormality on multiple imaging modalities. She does have a newly discovered widespread lymphadenopathy in the retroperitoneal and port hepato it is concerning for malignancy. She does have lymphoma in the family. Pain is controlled, she is tolerating orals. She is appropriate for discharge and will follow up with her primary care provider to pursue this diagnosis. She is given return precautions which include but are not limited to increasing pain, persistent vomiting, fever or other concerning symptoms Disposition: see below, along with detailed discharge instructions that have been reviewed with patient as well as indications for ED re-evaluation and addit ional outpatient follow up Discharge Plan Departure Patient Disposition: Home Clinical Impression: Acute UTI, Back pain Instructions: DI for Thoracic Back Pain Activity Restrictions/Additional Instructions: *You have been diagnosed with [back pain. As we discussed your labs and imaging are largely reassuring. There is no evidence of bowel obstruction, kidney stone and though there is subtle suggestion of urine infection your absence of symptoms would suggest it is appropriate to wait for urine culture before prescribing antibiotics. Both the CT and the MRI of your abdomen demonstrate a large number of large lymph nodes which is concerning and your doctor can help you get the appropriate outpatient work up for this *What to do: *Please continue to take your regular medications as directed. [x ] New medication prescriptions sent to your pharmacy: [[facility] ] [ ] New medication written as a paper prescription [ ] No new medications given *Please follow up with your primary care provider in 2-3 days, call for an appointment. Let them know you were seen in the Emergency Department and that we ask that you be seen in follow up. We will electronically transmit a record of today's note if your PCP is in our system *Return to Emergency Department if you should have any new, worsening or concerning symptoms, such as [fever greater than 101 F, shaking chills, worsening pain, persistent vomiting or other bothersome symptoms] Prescriptions: New hydrocodone-acetaminophen 5-325 mg tablet 1 tab PO Q4-6H PRN (Reason: pain) Qty: 20 0RF ondansetron 4 mg tablet,disintegrating 4 mg PO TID-QID PRN (Reason: nausea and vomiting) Qty: 10 0RF No Action cyclobenzaprine 10 mg tablet 10 mg PO TID PRN (Reason: muscle spasm) Qty: 20 0RF Referrals: Mamta Major FNP-C [Primary Care Provider] - Cami Rosales MD [Physician] - Stand Alone Forms: Patient Portal/API
--- NOTE | 2023-03-26 20:35 | DI.CT.S_ITS ---
PROCEDURE: CT ABDOMEN PELVIS W CON INDICATIONS: R flank and RLQ pain TECHNIQUE: After the administration of IV contrast, axial sections were acquired from the lung bases to the pubic symphysis. Coronal and sagittal reformats were performed. For radiation dose reduction, the following was used: automated exposure control, adjustment of mA and/or kV according to patient size. COMPARISON: [facility], CT, CT ABDOMEN PELVIS W CON, 11/26/2020, 18:02. FINDINGS: Image quality: Excellent. Lung bases: There is scarring and atelectasis in the lung bases. Heart: Heart is normal in size. There are mildly enlarged retrocrural lymph nodes measuring up to 1.0 cm. ABDOMEN: Liver: No mass lesion. Gallbladder: The gallbladder is distended without calcified gallstones or wall thickening. Biliary ducts: There is mild biliary ductal dilatation with the common duct measuring up to approximately 1.0 cm in tapering distally into the ampulla of Vater. There is mild soft tissue enhancement along the distal common bile duct and within the descending portion of the duodenum adjacent to the ampulla. There is an associated duodenal diverticulum. Pancreas: Mild enhancement of the uncinate process and pancreatic head also demonstrated along the ampulla without a discrete mass. No pancreatic duct dilatation. There is a small amount of adjacent peripancreatic and periduodenal free fluid. Spleen: Normal in size. Adrenal Glands: No adrenal nodules. Kidneys and Ureters: No hydronephrosis. Stomach and Bowel: As noted above, there is mild enhancement of the descending portion of the duodenum with an associated duodenal diverticulum. Stomach, small bowel loops, and colon are otherwise normal in caliber and wall thickness. The appendix is normal. Peritoneum: No abnormal intraperitoneal fluid. No free air. Ventral Wall: No hernia. Abdominal Nodes: There are new enlarged mesenteric, buffy hepatis and retroperitoneal lymph nodes. A sales representative buffy hepatis node measures up to 1.3 cm in short axis on series 2, image 25. A sales representative aortic caval node measures up to 1.6 cm on series 2, image 35. A sales representative mesenteric node measures up to 1.1 cm on series 2, image 51. Vessels: Aorta and inferior vena cava are normal in size. PELVIS: Pelvic Organs: Unremarkable. Bladder: Unremarkable. Pelvic Nodes: There are bilateral enlarged inguinal lymph nodes including a sales representative right inguinal node measuring up to 1.2 cm on series 2, image 82. There also enlarged pelvic sidewall lymph nodes including a sales representative left pelvic sidewall node measuring 1.1 cm on series 2, image 69. Miscellaneous: No inguinal hernias are seen. Bones: Visualized osseous structures demonstrate no suspicious focal lesions. IMPRESSION: 1. New retroperitoneal, buffy hepatis, mesenteric, and inguinal lymphadenopathy consistent with metastatic disease or lymphoma. 2. Mild enhancement along the distal common bile duct at the ampulla as well as enhancement of the descending portion of the duodenum which demonstrates an associated duodenal diverticulum. Mild enhancement also demonstrated within the adjacent pancreas without pancreatic duct dilatation or discrete mass. Mild adjacent free fluid noted. The differential includes sequelae of groove pancreatitis, a duodenitis/duodenal diverticulitis, or cholangitis. Although no discrete mass is visualized, consider follow-up evaluation with a pancreatic protocol MRI. Dictated by: Kane Murdock M.D. on 03/26/2023 at 22:12 Approved by: Kane Murdock M.D. on 03/26/2023 at 22:22
--- NOTE | 2023-03-26 23:30 | DI.MRI.S_ITS ---
PROCEDURE: MR AB PANCREATIC/MRCP PROTOCOL INDICATIONS: MRI pancreatic protocol, lymphadenopathy TECHNIQUE: Coronal HASTE through the abdomen, axial 2-D FLASH in- and [id number], and breath-hold T2 FSE with fat saturation through the biliary system and pancreas. Oblique coronal and axial thin-slice HASTE, radial thick-slab HASTE centered on the extrahepatic bile ducts. Intravenous secretin: Not requested. COMPARISON: [facility], CT, CT ABDOMEN PELVIS W CON, 03/26/2023, 20:41. FINDINGS: Image quality: Excellent. Pancreas and biliary system: Common bile duct is prominent measuring 9 mm. No intraductal stones. Intra-hepatic biliary ducts are non dilated. Pancreatic duct is prominent measuring 3 mm. Pancreas is normal in morphology, without adjacent soft tissue edema. Pancreatic duct is normal in caliber, without developmental anomalies. Gallbladder is distended. No gallstones. Other solid organs: Liver is mildly enlarged. There is hepatic steatosis. Spleen is at upper limits of normal in size. No adrenal nodules. Both kidneys are normal in size, without hydronephrosis. Nodes and vessels: There is retroperitoneal lymphadenopathy. Aorta and inferior vena cava are normal in size. Bowel and peritoneum: Unenhanced bowel loops are normal in caliber. No free fluid. Lung bases: No basal pleural effusions. Heart size is normal. Bones and soft tissues: No ventral hernias. Bone marrow is of normal overall signal. IMPRESSION: 1. Gallbladder is distended. No gallstones. 2. Mild dilation of common bile duct measuring 9 mm. No intraductal stones or obstructive masses. 3. Pancreatic duct is slightly prominent measuring 3 mm. Etiology uncertain. 4. Hepatic steatosis. 5. Retroperitoneal lymphadenopathy. Neoplasm, such as lymphoma or metastasis, needs to be excluded. Dictated by: Yrn Katz M.D. on 03/27/2023 at 11:32 Approved by: Yrn Katz M.D. on 03/27/2023 at 11:43
[2023-03-26] MEDS: cephALEXin 250 MG CAPSULE 500 MG PO (23:36)
[2023-03-27] VITALS (29 sets, daily range): BP systolic 141–196; BP diastolic 62–89; PULSE 72–98; RESP 10–23; O2SAT 89–100
[2023-03-27] MEDS: KETOROLAC 30 MG/ML VIAL 15 MG IV ×2 (00:40→09:15)
--- NOTE | 2023-03-27 00:42 | PC.NURSE ---
This nurse offered to place breakfast order tray for patient. Patient declined x2.
[2023-03-27] MEDS: MORPHINE 4 MG/ML INJ IV (02:39)
[2023-03-27] MEDS: PIPERACILLIN/TAZO 4.5 GM in SODIUM CHLORIDE 0.9% 100 ML IV (02:46)
[2023-03-27] MEDS: polyethylene glycoL 3350 17 GM POWD.PACK PO (02:58)
[2023-03-27] MEDS: SODIUM CHLORIDE 0.9% 1,000 ML 125 ML IV (03:08)
[2023-03-27 07:46] LABS: Alanine Aminotransferase 13 IU/L (<35); Albumin 3.5 g/dL (3.5-5.0); Alkaline Phosphatase 102 U/L (38-126); Aspartate Aminotransferase 26 IU/L (14-36); Bilirubin Total 1.7 mg/dL (0.2-1.3); Blood Urea Nitrogen 9 mg/dL (7-17); Calcium 8.1 mg/dL (8.4-10.2); Carbon Dioxide 24 mmol/L (22-32); Chloride 104 mmol/L (98-107); Estimated Glomerular Filt Rate > 60 mL/min (>60); Globulin 3.5 g/dL (1.7-4.1); Glucose 78 mg/dL (80-110); HEMOLYSIS 27 (0-50); Potassium 4.1 mmol/L (3.4-5.1); Sodium 135 mmol/L (137-145)
[2023-03-27] MEDS: HYDROMORPHONE 0.5 MG INJ IV (09:38)
--- NOTE | 2023-03-27 09:46 | PC.NURSE ---
the patient was medicated for pain and her o2 saturation dropped down to 87% on RA. She was placed on 1L NC and her O2 came back up to 100%. Her pain was well managed with 0.5 mg IV dilaudid.
[2023-03-27] MEDS: DEXTROSE 10 % IN WATER 250 ML 999 ML IV (10:02)
[2023-03-27] MEDS: HYDROCODONE/ACET 5/325 TABLET 1 TAB PO (13:45)
== END 2023-03-27 13:55 | disposition home or self-care (01) ==
PROVIDERS: Emergency Medicine; Emergency Provider Emergency Medicine; PCP Nurse Practitioner Family
DX: N39.0 Urinary tract infection, site not specified (principal); M54.6 Pain in thoracic spine; R10.31 Right lower quadrant pain
CPT/HCPCS: 36415; 74177; 74183; 80053; 81003; 81015; 82962; 83690; 85025; 87086; 96361; 96365; 96375; 96376; 99284; 99285; J1170; J1885; J2270; J2405; J2543; Q9967

== ENCOUNTER 2023-04-02 09:59 | Emergency (ER) | payer OTHER, SELFPAY ==
[2023-04-02] VITALS (48 sets, daily range): BP systolic 141–191; BP diastolic 65–125; PULSE 83–111; RESP 14–33; TEMP 36.7; O2SAT 92–99; BMI 30.4
[2023-04-02 10:29] LABS: Alanine Aminotransferase 18 IU/L (<35); Albumin 3.5 g/dL (3.5-5.0); Albumin Globulin Ratio 0.9 (1.0-2.8); Alkaline Phosphatase 105 U/L (38-126); Aspartate Aminotransferase 39 IU/L (14-36); BUN Creatinine Ratio 20.4 (6-22); Bilirubin Total 1.2 mg/dL (0.2-1.3); Blood Urea Nitrogen 20 mg/dL (7-17); Carbon Dioxide 25 mmol/L (22-32); Chloride 101 mmol/L (98-107); Estimated Glomerular Filt Rate > 60 mL/min (>60); Globulin 3.7 g/dL (1.7-4.1); Glucose 126 mg/dL (80-110); HEMOLYSIS 15 (0-50); Lipase 17 U/L (23-300); Potassium 3.5 mmol/L (3.4-5.1); Sodium 136 mmol/L (137-145); Total Protein 7.2 g/dL (6.3-8.2)
--- NOTE | 2023-04-02 10:48 | DI.CT.S_ITS ---
PROCEDURE: CT ABDOMEN PELVIS W CON INDICATIONS: RLQ, RUQ pain TECHNIQUE: After the administration of oral and IV contrast, axial sections were acquired from the lung bases to the pubic symphysis. Coronal and sagittal reformats were performed. For radiation dose reduction, the following was used: automated exposure control, adjustment of mA and/or kV according to patient size. COMPARISON: [facility], CT, CT ABDOMEN PELVIS W CON, 03/26/2023, 20:41. FINDINGS: Image quality: Excellent. Lung bases: Unremarkable. Heart: No significant findings. Other: Partially visualized mediastinal and axillary adenopathy is present. The largest visualized axillary lymph node is on the left measuring 1.7 cm on series 2, image 1. There is a 1.1 cm anterior right paratracheal lymph node on series 2, image 3. No priors are available for comparison. ABDOMEN: Liver: Liver is enlarged measuring 22.5 cm with mild steatosis. Gallbladder: Unremarkable. Biliary ducts: Unremarkable. Pancreas: Unremarkable. Spleen: Spleen is enlarged measuring 15.3 cm. Adrenal Glands: Unremarkable. Kidneys and Ureters: Unremarkable. Stomach and Bowel: Stomach, small bowel loops, and colon are unremarkable. Appendix is normal in size. Peritoneum: There has been development of mild strandy fluid within the central/right paracentral abdomen extending to the pelvis with mild dependent fluid, new compared to prior exam. Ventral Wall: No hernia. Abdominal Nodes: As identified on exam of 03/26/2023, there are focal and confluent mesenteric, buffy hepatis and retroperitoneal adenopathy. In general there is felt to be an overall interval increase in size and number. The data entry representative buffy hepatis node seen on series 3, image 40 measures 1.3 cm unchanged. The data entry representative aortic caval node on series 2, image 53 measures 1.9 cm compared to 1.6 cm. Vessels: Aorta and inferior vena cava are normal in size. PELVIS: Pelvic Organs: Unremarkable. Bladder: Unremarkable. Pelvic Nodes: As identified on prior exam, bilateral iliac and inguinal lymph nodes are present, overall felt to be increased in size and number compared to prior exam. Left pelvic sidewall lymph node on series 2, image 87 measures 1.5 cm compared to 1.1 cm on prior exam. The right inguinal lymph node on series 2, image 101 is also increased in size previously measuring 1.4 cm compared to 1.2 cm. Miscellaneous: No inguinal hernias are seen. Bones: Unremarkable. IMPRESSION: Interval increase in size and number of abdominal and pelvic adenopathy compared to prior exam. In addition, partially visualized axillary mediastinal adenopathy is present. Interval development of mild strandy fluid within the mid abdomen particularly surrounding the confluent area of lymph nodes with strandy fluid extending to the pelvis. This is suspected to be related to adenopathy inflammation as no other areas of primary inflammatory change are identified. Dictated by: Pati Patel M.D. on 04/02/2023 at 11:30 Approved by: Pati Patel M.D. on 04/02/2023 at 11:43
--- NOTE | 2023-04-02 10:48 | ED.BACK ---
HPI - Back Pain/Injury General Chief Complaint: Back Pain/Injury Stated Complaint: flank pain Time Seen by Provider: 04/02/23 10:03 Source: patient and EMS History of Present Illness HPI Narrative: 67-year-old female with no reported past medical history presents to the ED with right-sided mid and lower back pain. Patient also endorses right-sided abdominal pain, nausea. Patient had an episode of vomiting this morning. Patient endorses constipation, last bowel movement was 10 days ago. Patient states she has been taking Percocet which gave her some relief, however she ran out and has been taking oxycodone with little relief. Patient denies fever, chills, chest pain, shortness of breath, dysuria, lightheadedness, dizziness, syncope. Patient states that she has not eaten much over the last 4 or 5 days due to the nausea. Patient was seen in her PCP's office this morning, since she was seeking Oncology referral for further evaluation of the adenopathy. However, PCP sent patient to the ED for further evaluation to rule out more emergent causes. Related Data Previous Rx's Medication Instructions Recorded cyclobenzaprine 10 mg tablet 10 mg PO TID PRN muscle spasm #20 01/20/20 tabs hydrocodone 5 mg-acetaminophen 325 1 tab PO Q4-6H PRN pain #20 tabs 03/27/23 mg tablet ondansetron 4 mg disintegrating 4 mg PO TID-QID PRN nausea and 03/27/23 tablet vomiting #10 tabs cefpodoxime 200 mg tablet 200 mg PO Q12H 10 days #20 tabs 04/02/23 oxycodone-acetaminophen 5 mg-325 1 tab PO Q4-6H PRN pain 3 days #20 04/02/23 mg tablet (Percocet) tabs Allergies Allergy/AdvReac Type Severity Reaction Status Date / Time Sulfa (Sulfonamide Allergy Verified 03/26/23 18:57 Antibiotics) Review of Systems Review of Systems ROS Unobtainable: All systems reviewed & are unremarkable except as noted in HPI and below Constitutional Constitutional: Denies chills, Denies fatigue, Denies fever(s), Denies frequent falls, Denies lethargy and Denies weakness Eyes Eyes: Denies change in vision, Denies eye discharge, Denies irritation and Denies loss of vision ENT Ears, Nose, Mouth, and Throat: Denies change in voice, Denies dizziness, Denies neck pain, Denies sore throat and Denies throat swelling Cardiovascular Cardiovascular: Denies chest pain, Denies irregular heart rhythm, Denies lightheadedness, Denies palpitations, Denies dyspnea, Denies dyspnea on exertion and Denies orthopnea Respiratory Respiratory: Denies cough, Denies dyspnea, Denies dyspnea on exertion and Denies wheezing Gastrointestinal Gastrointestinal: Reports abdominal pain, Denies change in bowel habits, Reports constipation, Denies diarrhea, Reports nausea and Reports vomiting Genitourinary Genitourinary: Denies hematuria, Denies flank pain, Denies urinary incontinence and Denies urinary urgency Musculoskeletal Musculoskeletal: Reports back pain, Denies muscle weakness, Denies neck pain, Denies numbness and Denies tingling Integumentary/Breasts Skin/Breast: Denies pruritus, Denies erythema, Denies rash and Denies wounds Neurologic Neurologic: Denies behavioral changes, Denies confusion, Denies dizziness, Denies frequent falls, Denies loss of vision, Denies numbness, Denies tingling and Denies weakness Psychiatric Psychiatric: Denies anxiety, Denies behavioral changes, Denies confusion, Denies depression, Denies homicidal ideation and Denies suicidal ideation Endocrine Endocrine: Denies fatigue, Denies flushing and Denies palpitations Hematologic/Lymphatic Hematologic/Lymphatic: Denies easy bruising Allergic/Immunologic Allergic/Immunologic: Denies urticaria, Denies throat swelling and Denies wheezing Patient History Medical History HTN (hypertension) Surgical History History of tonsillectomy S/P bilateral breast reduction Social History Smoking Status: Unknown if ever smoked alcohol intake: current Smoking Status: Unknown if ever smoked alcohol intake frequency: holidays/special occasions only Substance Use Type: does not use Exam Narrative Exam Narrative: Const General:?cooperative, healthy appearing and comfortable [facility] Head:?normal to inspection Ears:?hearing grossly normal bilaterally Nose:?external nose normal Face and sinus:?normal facial exam and sinuses nontender Mouth:?oral mucosae normal Throat:?posterior oropharynx normal Eyes General:?appearance normal, both eyes and all related structures Neck Neck:?normal visual inspection and no lymphadenopathy noted Resp Effort & Inspection:?normal respiratory effort Auscultation:?clear to auscultation bilaterally Cardio Rate:?regular rate Rhythm:?regular rhythm GI Abdomen is soft, nondistended. Abdomen is tender to palpation in the right lower quadrant, right upper quadrant. No CVA tenderness. Musculoskeletal There is right-sided tenderness to palpation of the mid to lower back. No bruising Neuro General:?patient alert, patient awake and patient oriented x3 Initial Vital Signs Initial Vital Signs: Vital Signs Temperature 98.1 F 04/02/23 10:06 Pulse Rate 99 H 04/02/23 10:06 Respiratory Rate 18 04/02/23 10:06 Blood Pressure 182/125 H 04/02/23 10:06 Pulse Oximetry 95 04/02/23 10:06 Oxygen Delivery Method Room Air 04/02/23 10:06 Course Orders Ordered: ED Orders 04/02/23 12:13 Urine Culture Stat Urine Microscopic Stat Discontinued Medications Cyclobenzaprine HCl (Cyclobenzaprine 10 Mg Tablet) 10 mg PO NOW ONE Stop: 04/02/23 10:54 Last Admin: 04/02/23 11:07 Dose: 10 mg Documented By: RB Sodium Chloride (Normal Saline 0.9%) 1,000 mls @ 1,000 mls/hr IV BOLUS ONE Stop: 04/02/23 11:52 Last Infusion: 04/02/23 12:15 Dose: 0 mls/hr Documented By: Admin: 04/02/23 11:05 Dose: 1,000 mls/hr Documented By: YOSEPH Lidocaine (Lidocaine Patch 1 Each Adh..Patch) 1 each TOP NOW ONE Stop: 04/02/23 10:59 Last Admin: 04/02/23 11:07 Dose: 1 each Documented By: RB Morphine Sulfate (Morphine 4 Mg/Ml Inj) 4 mg IV NOW ONE Stop: 04/02/23 10:48 Last Admin: 04/02/23 11:06 Dose: 4 mg Documented By: YOSEPH Ondansetron HCl (Ondansetron 4 Mg Odt) 4 mg PO NOW PRN PRN Reason: Nausea And Vomiting Ondansetron HCl (Ondansetron 4 Mg/2 Ml Inj) 4 mg IV NOW PRN PRN Reason: Nausea And Vomiting Ondansetron HCl (Ondansetron 4 Mg/2 Ml Inj) 4 mg IV NOW ONE Stop: 04/02/23 10:54 Last Admin: 04/02/23 11:07 Dose: 4 mg Documented By: YOSEPH Vital Signs Vital signs: Vital Signs - 8 hr 04/02/23 13:00 04/02/23 13:00 04/02/23 13:05 Pulse Rate 93 H 95 H Respiratory Rate 24 24 Blood Pressure 145/68 H Pulse Oximetry 96 96 Oxygen Delivery Method 04/02/23 13:10 04/02/23 13:15 04/02/23 13:15 Pulse Rate 95 H 95 H Respiratory Rate 23 24 Blood Pressure 148/70 H Pulse Oximetry 96 96 Oxygen Delivery Method 04/02/23 13:20 04/02/23 13:25 04/02/23 13:30 Pulse Rate 94 H 94 H Respiratory Rate 23 25 H Blood Pressure 144/70 H Pulse Oximetry 97 97 Oxygen Delivery Method 04/02/23 13:30 04/02/23 13:35 04/02/23 13:40 Pulse Rate 96 H 95 H 97 H Respiratory Rate 23 23 20 Blood Pressure Pulse Oximetry 96 96 96 Oxygen Delivery Method 04/02/23 13:45 04/02/23 13:45 04/02/23 13:50 Pulse Rate 94 H 95 H Respiratory Rate 20 20 Blood Pressure 145/66 H Pulse Oximetry 96 97 Oxygen Delivery Method 04/02/23 13:55 04/02/23 14:00 04/02/23 14:00 Pulse Rate 96 H 97 H Respiratory Rate Blood Pressure 143/65 H Pulse Oximetry 96 98 Oxygen Delivery Method 04/02/23 14:05 04/02/23 14:10 04/02/23 14:15 Pulse Rate 104 H 108 H 108 H Respiratory Rate 20 17 18 Blood Pressure Pulse Oximetry 98 98 97 Oxygen Delivery Method 04/02/23 14:15 04/02/23 14:20 04/02/23 14:25 Pulse Rate 90 Respiratory Rate 22 Blood Pressure 161/80 H Pulse Oximetry 96 97 Oxygen Delivery Method 04/02/23 14:30 04/02/23 14:30 Pulse Rate 96 H Respiratory Rate 22 Blood Pressure 154/77 H Pulse Oximetry 97 Oxygen Delivery Method Room Air MDM - Back Pain/Injury Lab Data 04/02/23 10:00 04/02/23 10:00 Labs: Lab Results 07/13/23 07/13/23 07/13/23 Range/Units 10:00 10:00 12:13 WBC 5.7 (4.5-11.0) X10^3/uL RBC 4.81 (4.0-5.2) X10^6/uL Hgb 13.4 (12.0-16.0) g/dL Hct 39.5 (36-46) % MCV 82.0 (80-100) fL MCH 27.8 (26-34) PG MCHC 33.9 (30-36) % RDW 14.9 H (11.6-14.8) % Plt Count 205 (150-400) X10^3/uL Neut % (Auto) 58.5 (50-75) % Lymph % (Auto) 16.6 L (25-40) % [place] % (Auto) 15.1 H (3-14) % Eos % (Auto) 2.2 (2-4) % Baso % (Auto) 7.6 H (0-2) % Neut # (Auto) 3300 (6225-9197) /uL Lymph # (Auto) 1000 L (9650-0391) /uL [place] # (Auto) 900 (0-900) /uL Eos # (Auto) 100 (0-450) /uL Baso # (Auto) 400 H (0-100) /uL Sodium 136 L (137-145) mmol/L Potassium 3.5 (3.4-5.1) mmol/L Chloride 101 (98-107) mmol/L Carbon Dioxide 25 (22-32) mmol/L BUN 20 H (7-17) mg/dL Creatinine 0.98 (0.52-1.04) mg/dL Estimated GFR > 60 (>60) mL/min BUN/Creatinine Ratio 20.4 (6-22) Glucose 126 H (80-110) mg/dL Calcium 9.0 (8.4-10.2) mg/dL Total Bilirubin 1.2 (0.2-1.3) mg/dL AST 39 H (14-36) IU/L ALT 18 (<35) IU/L Alkaline Phosphatase 105 (38-126) U/L Total Protein 7.2 (6.3-8.2) g/dL Albumin 3.5 (3.5-5.0) g/dL Globulin 3.7 (1.7-4.1) g/dL Albumin/Globulin Ratio 0.9 L (1.0-2.8) Lipase 17 L (23-300) U/L Urine RBC 0-1/hpf (0-5/HPF) Urine WBC 5-10/hpf H (0-5/HPF) Ur Squamous Epith Cells 5-10 /hpf H (0-5/HPF) Urine Bacteria Few (2-10) H (None) Hyaline Casts 5-10/lpf (None) Urine Mucus 1+ H (Negative) Urine Dip Bedside Urine Glucose Negative Bedside Urine Bilirubin - Negative Bedside Urine Ketone +/- 5 Urine Specific [place] 1.005 Bedside Urine Occult Blood +/- Bedside Urine pH 5.5 Bedside Urine Protein + 30 Bedside Urine Urobilinogen - Negative Bedside Urine Nitrite - Negative Bedside Urine Leukocytes +/- 15 Esterase MDM Narrative Medical decision making narrative: 67-year-old female with no reported past medical history presents to the ED with right-sided mid and lower back pain. Concern for UTI versus pyelonephritis versus musculoskeletal sprain/strain versus intra-abdominal pathology versus other. Will obtain labs, UA, CT abdomen pelvis. Will treat with IV fluids, morphine, Flexeril. Will re-evaluate. Patient's symptoms significantly improved with medications. UA indicative of UTI. CT abdomen pelvis shows interval increase in size and number of abdominal and pelvic adenopathy compared to prior exam. In addition, partially visualized axillary mediastinal adenopathy is present. There is also interval development of mild strandy fluid within the mid abdomen particularly surrounding the confluent area of lymph nodes with strandy fluid extending to the pelvis. This is suspected to be related to adenopathy inflammation as no other areas of primary inflammatory change are identified. EKG showed normal sinus rhythm, no acute ST-T changes. Discussed findings with patient. Patient started on antibiotics for the UTI. Patient agrees to follow-up with her PCP as soon as possible for further evaluation of the adenopathy. Patient was also prescribed some pain medication for the next 3 days. ED return precautions were discussed with patient. Patient verbalized understanding. Discharge Plan Departure Patient Disposition: Home Clinical Impression: Acute UTI Instructions: DI for Urinary Tract Infection (UTI) Activity Restrictions/Additional Instructions: You were evaluated in the ED today for right-sided back pain. Your urine shows a UTI for which you are being started on antibiotics. Your CT abdomen pelvis shows an increase in size and number of abdominal and pelvic lymphadenopathy compared to last week's CT. There is also some partially visualized axillary mediastinal adenopathy. Please follow-up with your doctor for further workup of this as soon as possible. Return to the ED if you have worsening symptoms, persistent vomiting, fever, chills. Prescriptions: New cefpodoxime 200 mg tablet 200 mg PO Q12H 10 Days Qty: 20 0RF Rx Instructions: must administer with a meal/food oxycodone-acetaminophen [Percocet] 5-325 mg tablet 1 tab PO Q4-6H PRN (Reason: pain) 3 Days Qty: 20 0RF No Action cyclobenzaprine 10 mg tablet 10 mg PO TID PRN (Reason: muscle spasm) Qty: 20 0RF hydrocodone-acetaminophen 5-325 mg tablet 1 tab PO Q4-6H PRN (Reason: pain) Qty: 20 0RF ondansetron 4 mg tablet,disintegrating 4 mg PO TID-QID PRN (Reason: nausea and vomiting) Qty: 10 0RF Referrals: Mamta Major FNP-C [Primary Care Provider] - Stand Alone Forms: Patient Portal/API
[2023-04-02] MEDS: SODIUM CHLORIDE 0.9% 1,000 ML 1000 ML IV (11:05)
[2023-04-02] MEDS: MORPHINE 4 MG/ML INJ IV (11:06)
[2023-04-02] MEDS: ONDANSETRON 4 MG/2 ML INJ IV (11:07)
[2023-04-02] MEDS: LIDOCAINE PATCH 1 EACH ADH..PATCH TOP (11:07)
[2023-04-02] MEDS: CYCLOBENZAPRINE 10 MG TABLET PO (11:07)
--- NOTE | 2023-04-02 11:20 | PC.NURSE ---
This RN informed provider of elevated blood pressure of 191/116. No new orders from provider.
[2023-04-02 11:32] LABS: Add Manual Diff / Slide Review NO; Basophils Absolute Auto 400 /uL (0-100); Basophils Percent Auto 7.6 % (0-2); Eosinophils Absolute Auto 100 /uL (0-450); Eosinophils Percent Auto 2.2 % (2-4); Hematocrit 39.5 % (36-46); Hemoglobin 13.4 g/dL (12.0-16.0); Lymphocytes Absolute Auto 1000 /uL (1100-4500); Lymphocytes Percent Auto 16.6 % (25-40); Mean Corpuscular HGB Conc 33.9 % (30-36); Mean Corpuscular Hemoglobin 27.8 PG (26-34); Monocytes Absolute Auto 900 /uL (0-900); Monocytes Percent Auto 15.1 % (3-14); Neutrophils Absolute Auto 3300 /uL (1500-7000); Neutrophils Percent Auto 58.5 % (50-75); Platelet Count 205 X10^3/uL (150-400); Red Blood Cell Count 4.81 X10^6/uL (4.0-5.2); Red Cell Distribution Width 14.9 % (11.6-14.8); White Blood Cell Count 5.7 X10^3/uL (4.5-11.0)
[2023-04-02 13:40] LABS: Bacteria Urine Few (2-10); RBC Urine 0-1/HPF (0-5/HPF); Squamous Epithelial Cell Urine 5-10 /HPF (0-5/HPF); WBC Urine 5-10/HPF (0-5/HPF)
[2023-04-02 13:43] LABS: Hyaline Casts Urine 5-10/LPF; Mucus Urine 1+ (Negative)
== END 2023-04-02 14:42 | disposition home or self-care (01) ==
PROVIDERS: Emergency Medicine; Emergency Provider Student in an Organized Health Care Education/Training Program; PCP Nurse Practitioner Family
DX: N39.0 Urinary tract infection, site not specified (principal); M54.50 Low back pain, unspecified
CPT/HCPCS: 74177; 80053; 81003; 81015; 83690; 85025; 87086; 93005; 96361; 96374; 96375; 99284; 99285; J2270; J2405; Q9967

== ENCOUNTER 2023-04-09 18:47 | Emergency (ER) | payer OTHER, SELFPAY ==
[2023-04-09 19:45] VITALS: BP 155/82; PULSE 85; RESP 18; TEMP 36.3; O2SAT 98; BMI 30.8
--- NOTE | 2023-04-09 20:46 | ED_ITS ---
HPI - Recheck/Abnormal Lab/Rx General Chief Complaint: Recheck/Abnormal Lab/Rx Stated Complaint: Can't eat, No stools, Loss of weight Time Seen by Provider: 04/09/23 19:55 Source: patient Mode of arrival: Ambulatory History of Present Illness HPI narrative: Patient is a 67-year-old female who has an appointment with her primary doctor already scheduled for tomorrow who is here for evaluation of the same complaints that she is had off and on since the beginning of the month which includes nausea, loose stools, loss of weight, abdominal pain. She is had multiple workups here in the emergency department to include CT scans and ultrasounds. The only positive results have been nonspecific lymph nodes in her abdomen. She states she is tried to talk with her primary doctor's office. She states that she was supposed to have a CT scan performed but when she arrived to have that done there was some issues and could not have it done. She did have a CT scan on 04/02/2023. When I questioned her about this potentially it was an ultr asound that she was supposed to have performed. She has no new symptoms there just continued symptoms from earlier in the month. Related Data Previous Rx's Medication Instructions Recorded cyclobenzaprine 10 mg tablet 10 mg PO TID PRN muscle spasm #20 01/20/20 tabs hydrocodone 5 mg-acetaminophen 325 1 tab PO Q4-6H PRN pain #20 tabs 03/27/23 mg tablet ondansetron 4 mg disintegrating 4 mg PO TID-QID PRN nausea and 03/27/23 tablet vomiting #10 tabs cefpodoxime 200 mg tablet 200 mg PO Q12H 10 days #20 tabs 04/02/23 ondansetron 4 mg disintegrating 4 mg PO Q6H PRN nausea and 04/09/23 tablet vomiting #20 tabs Allergies Allergy/AdvReac Type Severity Reaction Status Date / Time Sulfa (Sulfonamide Allergy Verified 03/26/23 18:57 Antibiotics) Review of Systems Constitutional Constitutional: Reports system reviewed and no additional complaints, except as documented Gastrointestinal Gastrointestinal: Reports system reviewed and no additional complaints, except as documented Genitourinary Genitourinary: Reports system reviewed and no additional complaints, except as documented Musculoskeletal Musculoskeletal: Reports system reviewed and no additional complaints, except as documented Integumentary/Breasts Skin/Breast: Reports system reviewed and no additional complaints, except as documented Patient History Medical History HTN (hypertension) Surgical History History of tonsillectomy S/P bilateral breast reduction Social History Smoking Status: Unknown if ever smoked alcohol intake: current Smoking Status: Unknown if ever smoked alcohol intake frequency: holidays/special occasions only Substance Use Type: does not use Exam Initial Vital Signs Initial Vital Signs: Vital Signs Temperature 97.3 F L 04/09/23 19:45 Pulse Rate 85 04/09/23 19:45 Respiratory Rate 18 04/09/23 19:45 Blood Pressure 155/82 H 04/09/23 19:45 Pulse Oximetry 98 04/09/23 19:45 Oxygen Delivery Method Room Air 04/09/23 19:45 HENMT Head: normal to inspection and normocephalic Resp Effort & Inspection: normal respiratory effort Cardio Rate: regular rate Rhythm: regular rhythm GI Inspection: normal to inspection and non-distended Course Orders Ordered: Discontinued Medications Ondansetron HCl (Ondansetron 4 Mg Odt Prepack) 1 bottle MISC SEEINSTR ONE Stop: 04/09/23 20:47 Last Admin: 04/09/23 20:56 Dose: 1 bottle Documented By: HNG Vital Signs Vital signs: Vital Signs - 8 hr 04/09/23 19:45 04/09/23 20:55 Temperature 97.3 F L Pulse Rate 85 77 Respiratory Rate 18 16 Blood Pressure 155/82 H 134/77 Pulse Oximetry 98 95 Oxygen Delivery Method Room Air Room Air MDM - Recheck/Abnormal Lab/Rx MDM Narrative Medical decision making narrative: Patient has had an extensive workup here in the emergency department for her symptoms have been going on for the past several weeks and she has a follow-up with her primary doctor already scheduled for tomorrow. No further workup is required here in the ER. She was advised that she should talk with her primary doctor about the issues she is been having obtaining any radiologic studies that they would want to have. There is no indication to repeat any studies that she has already had this this visit. I will refill her nausea medication and have her follow-up with her primary doctor as scheduled tomorrow Discharge Plan Departure Patient Disposition: Home Clinical Impression: Abdominal pain, Nausea Instructions: DI for Nausea -- Adult Activity Restrictions/Additional Instructions: I do recommend that when you have your appointment with your primary doctor tomorrow you talk with him/her about the issues that you been having scheduling appointments. I do recommend that you increase your fluid intake by drinking small amounts over longer periods of time and more frequently. Return to the emergency department for new symptoms Prescriptions: New ondansetron 4 mg tablet,disintegrating 4 mg PO Q6H PRN (Reason: nausea and vomiting) Qty: 20 0RF No Action cyclobenzaprine 10 mg tablet 10 mg PO TID PRN (Reason: muscle spasm) Qty: 20 0RF hydrocodone-acetaminophen 5-325 mg tablet 1 tab PO Q4-6H PRN (Reason: pain) Qty: 20 0RF ondansetron 4 mg tablet,disintegrating 4 mg PO TID-QID PRN (Reason: nausea and vomiting) Qty: 10 0RF cefpodoxime 200 mg tablet 200 mg PO Q12H 10 Days Qty: 20 0RF Rx Instructions: must administer with a meal/food Referrals: Mamta Major FNP-C [Primary Care Provider] - Stand Alone Forms: Patient Portal/API
[2023-04-09 20:55] VITALS: BP 134/77; PULSE 77; RESP 16; O2SAT 95
[2023-04-09] MEDS: ONDANSETRON 4 MG ODT PREPACK 1 BOTTLE MISC (20:56)
== END 2023-04-09 21:02 | disposition home or self-care (01) ==
PROVIDERS: Emergency Provider Emergency Medicine; PCP Nurse Practitioner Family
DX: R10.9 Unspecified abdominal pain (principal); R11.0 Nausea
CPT/HCPCS: 99281

== ENCOUNTER → 2023-04-19 09:42 | Outpatient (CLI) | payer OTHER, SELFPAY ==
--- NOTE | 2023-04-19 09:43 | DI.CT.S_ITS ---
PROCEDURE: CT CHEST W contrast INDICATIONS: Adenopathy TECHNIQUE: After the administration of intravenous contrast, 5 mm thick sections acquired from the pulmonary apices to the posterior costophrenic angles. 1 mm axial lung, 5 mm thick coronal and sagittal reformats and 7 mm axial MIP were acquired. For radiation dose reduction, the following was used: automated exposure control, adjustment of mA and/or kV according to patient size. COMPARISON: [facility], CT, CT ABDOMEN PELVIS W CON, 04/02/2023, 10:57. FINDINGS: Cardiovascular and Mediastinum: Heart size is normal. No evidence of thoracic aortic aneurysm. Atherosclerotic vascular calcification noted in the aortic arch. Pulmonary vasculature is unremarkable. No hiatal hernia. Thyroid gland unremarkable. Lungs and Pleural Spaces: In the left lower lobe, there is a irregular masslike consolidation or infiltrate measuring 1.6 x 1.8 by 2.6 cm. Additional 5 mm nodule in the right middle lobe, and 1.2 x 0.6 cm nodule in the superior segment of the right lower lobe noted as well Lymph Nodes: Multiple mediastinal, supraclavicular and bilateral axillary lymph nodes are nonenlarged but abnormal in number certainly. Musculoskeletal: No evidence of rib fracture. Thoracic spine unremarkable. Chest wall and sternum intact. No lytic or blastic lesions. Upper abdomen: Visualized portions of the liver, spleen and kidneys are unremarkable. IMPRESSION: 1. Irregular masslike consolidation or infiltrate present in the left lower lobe medially which is new from the prior exam 04/02/2023. Given its rapid growth, this is most likely infectious. Follow-up to resolution to exclude underlying mass lesion. 2. Additional 5 mm rounded nodule in the right middle lobe and 1.2 cm pleural based consolidation or nodule in the superior segment right lower lobe. Additional follow-up warranted. 3. Mediastinal, supraclavicular and bilateral axillary multiple nonenlarged lymph nodes are abnormal in number. Approved by: Aman Ortiz M.D. on 04/19/2023 at 15:42
== END ==
PROVIDERS: PCP Nurse Practitioner Family; Visit Provider Physician Assistant
DX: R59.0 Localized enlarged lymph nodes (principal); R91.8 Other nonspecific abnormal finding of lung field
CPT/HCPCS: 71260; Q9967

== ENCOUNTER → 2023-08-24 13:01 | Outpatient (CLI) | payer OTHER, SELFPAY ==
--- NOTE | 2023-08-24 | DI.CT.S_ITS ---
PROCEDURE: CT CHEST ABD PEL W CON INDICATIONS: ABNORMAL FINDINGS ON PRIOR CT TECHNIQUE: After the administration of oral and intravenous contrast, axial sections acquired from the supraclavicular neck to the pubic symphysis. Coronal and sagittal reformats were performed. For radiation dose reduction, the following was used: automated exposure control, adjustment of mA and/or kV according to patient size. COMPARISON: [facility], CT, CT ABDOMEN PELVIS W CON, 04/02/2023, 10:57. [facility], CT, CT CHEST W CON, 04/19/2023, 10:21. FINDINGS: Image quality: Excellent. CHEST: Lower Neck: No enlarged lymph nodes. Thyroid: No thyroid nodules which require sonographic follow up, per consensus guidelines. Axillae: Compared to CT chest dated April 19, 2023, multiple new enlarged axillary lymph nodes. These were partially visualized on prior CT dated April 02, 2023. For example: -right axilla, measures 1.6 x 1.3 cm (11/13) -left axilla, measures 1.5 x 1.1 cm (11/09) Chest Wall: Unremarkable. Lungs and Airways: Compared to CT chest dated April 19, 2023, no new or enlarging solid pulmonary nodules. Left lower lobe masslike consolidation has resolved. Previously described 1.2 x 0.6 nodule in the superior segment of the right lower lobe is not well seen. Multiple scattered solid, noncalcified pulmonary nodules as before. For example: -middle lobe, measures 7 x 7 mm (3/168), previously 7 x 7 mm (3/165) -right upper lobe, measures 3 mm (3/53), previously 3 mm (3/48). Pleura: No pneumothorax or pleural effusions. Heart: Heart size is normal. No pericardial effusion. Thoracic Vessels: The aorta and pulmonary arteries demonstrate normal size. No filling defects in the central pulmonary vasculature. Mild calcification of the thoracic aorta. Mediastinum and Nu: No enlarged lymph nodes by size criteria. Esophagus: No wall thickening. No hiatal hernia. ABDOMEN: Liver: No solid mass. Gallbladder: No radiopaque gallstones or wall thickening. Biliary ducts: No biliary dilation. Pancreas: No ductal dilation. Spleen: Mild splenomegaly measuring 13.4 cm (2/56). Adrenal Glands: No adrenal nodules. Kidneys and Ureters: No hydronephrosis. No solid mass. No complex renal cystic lesion which requires follow up. Stomach and Bowel: Normal colonic caliber, without significant wall thickening. No pneumatosis, pneumoperitoneum or portal venous gas. Peritoneum: No abnormal intraperitoneal fluid. Ventral Wall: No hernia. Abdominal/Pelvic Nodes: Compared to prior, adenopathy has markedly decreased in size and number. For example: -aortocaval lymph node measures 1.6 x 1 cm (76), previously 3.4 x 2.6 cm (60). -left external iliac, measures 1 x 1 cm (103), previously 1.8 x 1.4 cm (84) -right inguinal, measures 1.7 x 1.3 cm (2114), previously 1.6 x 1.6 cm (101). Vessels: Aorta and inferior vena cava are normal in size. Mild calcification of the abdominal aorta, without aneurysm. PELVIS: Pelvic Organs: Unremarkable. Bladder: Unremarkable. Miscellaneous: No inguinal hernias are seen. Bones: No acute fracture. No aggressive appearing lytic or blastic osseous lesion. Mild multilevel degenerative changes of the spine. IMPRESSION: 1. Compared to CT chest dated April 19, 2023, multiple new enlarged axillary lymph nodes. These were partially visualized on prior CT dated April 02, 2023. 2. No new or enlarging pulmonary nodules or consolidation. Left lower lobe masslike consolidation has resolved. Previously described 1.2 x 0.6 cm nodule in the right lower lobe is not well seen. 3. Compared to CT abdomen and pelvis dated April 02, 2023, markedly decreased size and number of abdominopelvic lymphadenopathy. Dictated by: Nancy Noble M.D. on 08/25/2023 at 8:58 Approved by: Nancy Noble M.D. on 08/25/2023 at 10:32
== END ==
PROVIDERS: PCP Nurse Practitioner Family; Visit Provider Nurse Practitioner Family
DX: R93.5 Abnormal findings on diagnostic imaging of other abdominal regions, including retroperitoneum (principal); R93.89 Abnormal findings on diagnostic imaging of other specified body structures; R91.8 Other nonspecific abnormal finding of lung field; R59.0 Localized enlarged lymph nodes; R16.1 Splenomegaly, not elsewhere classified
CPT/HCPCS: 71260; 74177; Q9967

== ENCOUNTER → 2023-10-22 13:12 | Outpatient (CLI) | payer OTHER, SELFPAY ==
--- NOTE | 2023-10-22 13:15 | DI.MG.S_ITS ---
BILATERAL DIGITAL DIAGNOSTIC MAMMOGRAM 3D/2D: 10/22/2023 CLINICAL: Incidental finding on Cat scan . Enlarged axillary lymphnodes. Comparison is made to exam dated: 08/13/2022 mammogram - [facility]. There are scattered areas of fibroglandular density in both breasts (category b / 25%-50% glandular tissue). Bilateral axillary lymphadenopathy. No other significant masses, calcifications, or other findings are seen in either breast. IMPRESSION: INCOMPLETE: NEEDS ADDITIONAL IMAGING EVALUATION Bilateral axillary lymphadenopathy. Ultrasound recommended. Based on the Tyrer Cuzick model (a risk assessment model) the patient's lifetime risk is 3.7% and her 10 year risk is 2.0%. According to the ACR, ACS, and NCCN guidelines, an annual breast MRI exam along with mammogram is recommended if the patient's lifetime risk is 20% or greater. This exam was interpreted at Station ID: [id number]. NOTE: For mammograms, a report in lay terms will be sent to the patient. Approximately 15% of breast malignancies will not be visualized mammographically. In the management of a palpable breast mass, a negative mammogram must not discourage biopsy of a clinically suspicious lesion. Electronically Signed By: Sly Houser M.D. lc/:10/22/2023 14:10:39 ACR BI-RADS Category 0: Incomplete 3340F
--- NOTE | 2023-10-22 14:22 | DI.US.S_ITS ---
ULTRASOUND OF LEFT BREAST: 10/22/2023 CLINICAL: Patient returns today to evaluate an asymmetry in the left axilla. Comparison is made to exams dated: 10/22/2023 mammogram, 08/24/2023 CT, and 08/13/2022 mammogram - [facility]. Real-time ultrasound of the left breast was performed. Vicente scale images of the real-time examination were reviewed. Enlarged left axillary nodes are present. IMPRESSION: BENIGN Enlarged left axillary nodes are present, suspicious for non-breast malignancy. US-biopsy recommended of the right axillary node. This exam was interpreted at Station ID: [id number]. Electronically Signed By: Sly Houser M.D. lc/:10/22/2023 15:01:22 letter sent: Biopsy Required Ultrasound BI-RADS: 2 Benign
--- NOTE | 2023-10-22 14:22 | DI.US.S_ITS ---
ULTRASOUND OF RIGHT BREAST: 10/22/2023 CLINICAL: Patient returns today to evaluate a focal asymmetry in the right axilla. Comparison is made to exams dated: 10/22/2023 mammogram, 08/13/2022 mammogram, and 08/24/2023 [facility]. Real-time ultrasound of the right breast was performed. Vicente scale images of the real-time examination were reviewed. There are enlarged lymph nodes in the right axilla. Largest is up to 2.1cm in short axis. IMPRESSION: BENIGN There are enlarged lymph nodes in the right axilla (also seen on the left), suspicious for malignancy of non-breast origin. Right axillary US-biopsy recommended. This exam was interpreted at Station ID: [id number]. Electronically Signed By: Sly Houser M.D. lc/:10/22/2023 15:02:27 letter sent: Biopsy Required Ultrasound BI-RADS: 2 Benign
== END ==
LOC: MAMMO 13:14
PROVIDERS: PCP Physician Assistant; Referring Provider Physician Assistant; Visit Provider Physician Assistant
DX: R59.0 Localized enlarged lymph nodes; R93.5 Abnormal findings on diagnostic imaging of other abdominal regions, including retroperitoneum; R92.8 Other abnormal and inconclusive findings on diagnostic imaging of breast; R92.323 Mammographic fibroglandular density, bilateral breasts
CPT/HCPCS: 76882; 77066; G0279

== ENCOUNTER → 2023-10-28 08:35 | Outpatient (CLI) | payer OTHER, SELFPAY ==
--- NOTE | 2023-10-28 | PATH_ITS ---
[facility] Accession Number: [id number] No. of containers..01 Tissue . 01 Material submitted: . lymph node - RIGHT AXILLA LYMPH NODE . 01 Diagnosis: Right Axillary Lymph Node, Core Biopsy: - Atypical T-cell infiltrate with T follicular helper cell immunophenotype, final diagnosis pending additional immunostains and molecular studies. - See comment and microscopic description. -- COMMENT: - Flow cytometry detected a CD10+ aberrant T-cell population comprising a 14.6% of total lymphocytes. The abnormal T-cells express CD3 (dim), CD4, and CD10; and aberrant uniform loss of CD7. This population exhibits normal expression of CD2, and CD5, without CD8. Please see flow cytometry report for details (specimen ID: [id number]). - The overall morphologic and immunophenotype pattern is concerning for involvement by a lymphoproliferative disorder with the differential including tino T Follicular Morley cell Lymphoma (nTFHL). Results of additional immunostains and T-cell gene rearrangement studies by PCR will be reported in an addendum with an updated diagnosis. - Results were discussed with KODI Riggs at [facility] at 3:20 PM, 11/03/2023. [facility] 11/03/2023 1540 Local . 01 Electronically signed: . Pauline Pardo MD, Pathologist NPI- [id number] . 01 Gross description: . RIGHT AXILLA LYMPH NODE: Received in formalin are 3 fragment(s) of dewey, soft tissue measuring 0.4 x 0.1 x 0.1 cm to 1.2 x 0.1 x 0.1 cm submitted entirely in 1 cassette(s) /VIRIDIANA 10/29/2023 0052 Local . 01 Microscopic: . - Histologic sections demonstrate core fragments of lymphoid and fatty tissue involved by an atypical lymphoid infiltrate, scattered and within focal clusters in a polymorphous background. The atypical lymphoid cells are xqpnh-yo-xfakmfazpggd in size with clear cytoplasm, and irregular nuclear contours. Focal large endothelial cells are present which may represent high endothelial venules (HEV). Background cells include numerous scattered eosinophils, histiocytes, plasma cells, small reactive lymphocytes, and larger activated lymphocytes with immunoblast-like morphology. - Immunohistochemical stains were indicated and performed on block A with adequate controls. Normal and neoplastic T-cells are highlighted by CD3, CD2, and CD5 (variable). CD7 is lost in 20-30% of T-cells (neoplastic subset). CD4 highlights the majority of T-cells and background histiocytes. CD21 and CD23 highlight extra-follicular expanded follicular dendritic cell (PRISON) meshworks. Neoplastic T-cells are positive for CD10, and BCL-6 (both wyyyqczv-ah-eqjvvw intensity), in a distribution approximating CD21/CD97-eontdqnj PRISON meshworks (different to B-cell distribution). CD8 is positive in a small subset of normal T-cells. - PAX5 and CD20 highlight scattered and clustered small B-cells, as well as scattered large, activated B-cells which are positive for CD30, and KRISSY NEFTALI (subset). CD30 also highlights activated T lymphocytes. CD34 highlights endothelial cells that are focally large and clustering. - Sections are negative for granulomata, and abnormal fibrotic bands. The overall findings are concerning for a T lymphoproliferative disorder with T follicular helper cell immunophenotype, favoring nTFHL (subtyping will require excisional biopsy), however, final diagnosis is pending additional immunostains that are being performed at an outside facility (PD1, CXCL13, and ICOS), and molecular studies (T-cell gene rearrangement studies by PCR). Technical Note: The immunohistochemical stains reported were performed at [email or web address] ([address], [facility] [address]). They were developed and their performance characteristics determined by [employer] They have not been cleared or approved by the U.S. Food and Drug Administration, although such approval is not required for analyte-specific reagents of this type. - As part of ongoing principal quality engineer, select slides were reviewed by Dr. Roverto Patterson and Dr. Sherrie Sahu, who agree with the interpretation. . 01 Pathologist provided ICD-10: R59.0 . 01 CPT . 220770, V52916, F48854, W40214 Specimen Comment: A courtesy copy of this report has been sent to [facility] Performed at: 01 [facility] [address] [place] [address], [place], [place] [id number] MD Kane Jama MD Phone: [phone]
--- NOTE | 2023-10-28 | DI.US.S_ITS ---
PROCEDURE: US BIOPSY RT AXILLA COMPARISON: None. INDICATIONS: RIGHT AXILLA LYMPHADENOPATHY FINDINGS: Under ultrasound guidance, a right level 1 axillary chain lymph node was visualized, and had an abnormal appearance with expansion of the cortex. A time-out was performed prior to the procedure. The skin was prepped in a sterile fashion. Approximately 8 mL of lidocaine 1% was administered into the skin and superficially.6 samples were obtained with an 18 G Tenmo biopsy device. Approximately 5 cc blood loss was noted. A biopsy marker was placed within the lymph node following the procedure. IMPRESSION: Successful right axillary lymph node biopsy. Dictated by: Shahram Leblanc M.D. on 10/28/2023 at 14:37 Approved by: Shahram Leblanc M.D. on 10/28/2023 at 14:39
== END ==
LOC: US 08:36
PROVIDERS: PCP Physician Assistant; Referring Provider Physician Assistant; Visit Provider Nurse Practitioner Family
DX: R59.0 Localized enlarged lymph nodes (principal)
CPT/HCPCS: 38505; 76942

== ENCOUNTER 2024-02-19 14:40 | Inpatient (IN) | payer MEDICARE, SELFPAY ==
[2024-02-19] VITALS (17 sets, daily range): BP systolic 152–204; BP diastolic 64–99; PULSE 61–91; RESP 9–31; TEMP 36.6–36.8; O2SAT 92–100; BMI 24.8
--- NOTE | 2024-02-19 14:54 | DI.RAD.S_ITS ---
PROCEDURE: XR CHEST 1V INDICATIONS: chest pain TECHNIQUE: One view of the chest was acquired. COMPARISON: None. FINDINGS: Surgical changes and devices: None. Lungs and pleura: Lungs are clear. No pleural effusions or pneumothorax. Mediastinum: Mediastinal contours appear normal. Heart size is normal. Bones and chest wall: No suspicious bony lesions. Overlying soft tissues appear unremarkable. IMPRESSION: No acute cardiopulmonary abnormality is seen. Dictated by: Harsh Hand M.D. on 02/19/2024 at 15:50 Approved by: Harsh Hand M.D. on 02/19/2024 at 15:51
[2024-02-19 15:21] LABS: Amorphous Sediment Urine 2+; Bacteria Urine Few (2-10); Culture Indicated Urine Specimen Cultured; RBC Urine 0-1/HPF (0-5/HPF); Squamous Epithelial Cell Urine 0-1 /HPF (0-5/HPF); Urine Volume 10mL (spun); WBC Urine 5-10/HPF (0-5/HPF)
[2024-02-19 15:25] LABS: Prothrombin Time 11.2 SECONDS (9.4-12.5)
[2024-02-19 15:26] LABS: Add Manual Diff / Slide Review NO; Basophils Absolute Auto 100 /uL (0-100); Basophils Percent Auto 1.1 % (0-2); Eosinophils Absolute Auto 200 /uL (0-450); Eosinophils Percent Auto 2.3 % (2-4); Hematocrit 35.4 % (36-46); Hemoglobin 11.9 g/dL (12.0-16.0); Lymphocytes Absolute Auto 2000 /uL (1100-4500); Lymphocytes Percent Auto 25.9 % (25-40); Mean Corpuscular HGB Conc 33.8 % (30-36); Mean Corpuscular Hemoglobin 26.9 PG (26-34); Mean Corpuscular Volume 79.6 fL (80-100); Monocytes Absolute Auto 1500 /uL (0-900); Monocytes Percent Auto 20.3 % (3-14); Neutrophils Absolute Auto 3800 /uL (1500-7000); Neutrophils Percent Auto 50.4 % (50-75); Platelet Count 316 X10^3/uL (150-400); Red Blood Cell Count 4.44 X10^6/uL (4.0-5.2); Red Cell Distribution Width 14.6 % (11.6-14.8); White Blood Cell Count 7.6 X10^3/uL (4.5-11.0)
[2024-02-19 15:28] LABS: PTT Partial Thromboplastin Tim 35 SECONDS (25.1-36.5)
[2024-02-19 15:30] LABS: Alanine Aminotransferase 16 IU/L (<35); Albumin 4.6 g/dL (3.5-5.0); Albumin Globulin Ratio 1.2 (1.0-2.8); Alkaline Phosphatase 127 U/L (38-126); Aspartate Aminotransferase 39 IU/L (14-36); BUN Creatinine Ratio 16.4 (6-22); Bilirubin Total 1.9 mg/dL (0.2-1.3); Blood Urea Nitrogen 27 mg/dL (7-17); Carbon Dioxide 32 mmol/L (22-32); Chloride 97 mmol/L (98-107); Creatine Kinase 28 U/L (30-135); Estimated Glomerular Filt Rate 34 mL/min (>60); Globulin 3.9 g/dL (1.7-4.1); Glucose 117 mg/dL (80-110); HEMOLYSIS < 15 (0-50); Lipase 40 U/L (23-300); Magnesium 2.2 mg/dL (1.6-2.3); Potassium 3.2 mmol/L (3.4-5.1); Sodium 136 mmol/L (137-145); Total Protein 8.5 g/dL (6.3-8.2)
[2024-02-19 15:38] LABS: Calcium 14.5 mg/dL (8.4-10.2)
[2024-02-19 15:41] LABS: Troponin I 0.015 ng/mL (0.01-0.034)
--- NOTE | 2024-02-19 16:50 | ED_ITS ---
HPI - Recheck/Abnormal Lab/Rx General Chief Complaint: Recheck/Abnormal Lab/Rx Stated Complaint: cancer pt, Calcium levels high, sent by Dr. Tovar Seen by Provider: 02/19/24 16:24 History of Present Illness HPI narrative: Patient is a 68-year-old female with new diagnosis of an unknown lymphoma presenting today with abnormal blood work. She was seen and evaluated at [facility] today which was new. They received a phone call about some outpatient blood work and an abnormal lab and instructed to go to the emergency department. She states that she has high calcium levels. She has been having some mental confusion slow thinking and some general lethargy and weakness. No significant weight loss or night sweats. No fevers or chills. Denies any sort of cough. Related Data Home Medications Medication Instructions Recorded Confirmed No Known Home Medications 02/19/24 02/19/24 Allergies Allergy/AdvReac Type Severity Reaction Status Date / Time Sulfa (Sulfonamide Allergy Verified 03/26/23 18:57 Antibiotics) Patient History Medical History HTN (hypertension) Surgical History S/P bilateral breast reduction History of tonsillectomy Social History Smoking Status: Never smoker alcohol intake: current Smoking Status: Unknown if ever smoked alcohol intake frequency: holidays/special occasions only Substance Use Type: does not use Exam Initial Vital Signs Initial Vital Signs: Vital Signs Temperature 97.9 F 02/19/24 14:45 Pulse Rate 61 02/19/24 14:45 Respiratory Rate 16 02/19/24 14:45 Blood Pressure 195/98 H 02/19/24 14:45 Pulse Oximetry 100 02/19/24 14:45 Oxygen Delivery Method Room Air 02/19/24 14:45 GENERAL: Alert pleasant nontoxic 68-year-old female and in [no acute] distress. HEENT: Head atraumatic,EOMI, pupils reactive, face symmetric, [moist] mucous membranes CARDIOVASCULAR: Regular rate and rhythm without murmurs, rubs or gallops. RESPIRATORY: Breath sounds equal bilaterally, no wheezes rales or rhonchi. ABDOMEN: Soft, nontender. Normoactive bowel sounds all 4 quadrants. No guarding or rebound. EXTREMITIES: Normal range of motion, no clubbing or edema. Neurovascularly intact NEUROLOGICAL: Alert and oriented x4.Normal gait and speech. SKIN: Warm, dry, no laceration, no petechiae, no rashes or lesions. Course Orders Ordered: Acetaminophen (Acetaminophen 325 Mg Tablet) 650 mg PO Q6H PRN PRN Reason: Fever/Mild Pain (1-3) Hydrocodone Bitart/Acetaminophen (Hydrocodone/Acet 5/325 Tablet) 1 tab PO Q4H PRN PRN Reason: Pain, Moderate (4-6) Last Admin: 02/19/24 23:07 Dose: 1 tab Documented By: Al Hydrox/Mg Hydrox/Simethicone (Mag Hydrox/Alum/Simeth 30 Ml Udc) 30 ml PO Q6HR PRN PRN Reason: Dyspepsia Last Admin: 02/19/24 23:07 Dose: 30 ml Documented By: Amlodipine Besylate (Amlodipine 5 Mg Tablet) 5 mg PO DAILY [facility] Last Admin: 02/19/24 19:30 Dose: 5 mg Documented By: SB Furosemide (Furosemide 40 Mg/4 Ml Vial) 40 mg IV Q8H [facility] Last Admin: 02/20/24 04:01 Dose: 40 mg Documented By: Heparin Sodium (Porcine) (Heparin 5,000 Unit/Ml Vial) 5,000 unit SUBCUT BID [facility] Last Admin: 02/19/24 23:07 Dose: 5,000 unit Documented By: MS Sodium Chloride (Normal Saline 0.9%) 1,000 mls @ 125 mls/hr IV CONT [facility] Last Admin: 02/20/24 03:38 Dose: 125 mls/hr Documented By: Infusion: 02/20/24 03:30 Dose: Infused Documented By: Admin: 02/19/24 19:30 Dose: 125 mls/hr Documented By: SB Naloxone HCl (Naloxone 0.4 Mg/Ml Vial) 0.2 mg IV Q2MIN PRN PRN Reason: Opiate Reversal Ondansetron HCl (Ondansetron 4 Mg/2 Ml Inj) 4 mg IV Q8HR PRN PRN Reason: Nausea And Vomiting Potassium Chloride (Potassium Chloride 20 Meq Tab) 30 meq PO Q6H [facility] Stop: 02/20/24 12:46 Last Admin: 02/20/24 06:54 Dose: 30 meq Documented By: MS Discontinued Medications Furosemide (Furosemide 40 Mg/4 Ml Vial) 20 mg IV NOW ONE Stop: 02/19/24 16:25 Last Admin: 02/19/24 17:05 Dose: 20 mg Documented By: NADIA Sodium Chloride (Normal Saline 0.9%) 1,000 mls @ 1,000 mls/hr IV BOLUS ONE Stop: 02/19/24 17:23 Last Infusion: 02/19/24 18:42 Dose: Infused Documented By: Admin: 02/19/24 17:05 Dose: 1,000 mls/hr Documented By: SB Vital Signs Vital signs: Vital Signs - 8 hr 02/19/24 14:45 02/19/24 15:02 02/19/24 15:04 Temperature 97.9 F Pulse Rate 61 90 Respiratory Rate 16 31 H 15 Blood Pressure 195/98 H Pulse Oximetry 100 97 Oxygen Delivery Method Room Air 02/19/24 15:04 02/19/24 15:30 02/19/24 15:30 Temperature Pulse Rate 84 Respiratory Rate 9 L Blood Pressure 203/95 H 164/79 H Pulse Oximetry 94 Oxygen Delivery Method 02/19/24 16:00 02/19/24 16:00 02/19/24 16:30 Temperature Pulse Rate 81 Respiratory Rate 15 Blood Pressure 164/82 H 172/84 H Pulse Oximetry 96 Oxygen Delivery Method 02/19/24 16:30 02/19/24 17:00 02/19/24 17:00 Temperature Pulse Rate 75 77 Respiratory Rate 17 14 Blood Pressure 179/86 H Pulse Oximetry 96 97 Oxygen Delivery Method Room Air 02/19/24 17:30 02/19/24 17:30 02/19/24 18:00 Temperature Pulse Rate 91 H Respiratory Rate 29 H Blood Pressure 180/99 H 204/84 H Pulse Oximetry 97 Oxygen Delivery Method 02/19/24 18:00 Temperature Pulse Rate 80 Respiratory Rate 22 Blood Pressure Pulse Oximetry 98 Oxygen Delivery Method Room Air MDM - Recheck/Abnormal Lab/Rx Lab Data 02/20/24 05:32 02/20/24 05:32 Labs: Lab Results 02/19/24 02/19/24 Range/Units 15:09 15:10 WBC 7.6 (4.5-11.0) X10^3/uL RBC 4.44 (4.0-5.2) X10^6/uL Hgb 11.9 L (12.0-16.0) g/dL Hct 35.4 L (36-46) % MCV 79.6 L (80-100) fL MCH 26.9 (26-34) PG MCHC 33.8 (30-36) % RDW 14.6 (11.6-14.8) % Plt Count 316 (150-400) X10^3/uL Neut % (Auto) 50.4 (50-75) % Lymph % (Auto) 25.9 (25-40) % [place] % (Auto) 20.3 H (3-14) % Eos % (Auto) 2.3 (2-4) % Baso % (Auto) 1.1 (0-2) % Neut # (Auto) 3800 (0897-5202) /uL Lymph # (Auto) 2000 (9893-6014) /uL [place] # (Auto) 1500 H (0-900) /uL Eos # (Auto) 200 (0-450) /uL Baso # (Auto) 100 (0-100) /uL PT 11.2 (9.4-12.5) SECONDS INR 1.0 (0.9-1.3) APTT 35 (25.1-36.5) SECONDS Sodium 136 L (137-145) mmol/L Potassium 3.2 L (3.4-5.1) mmol/L Chloride 97 L (98-107) mmol/L Carbon Dioxide 32 (22-32) mmol/L BUN 27 H (7-17) mg/dL Creatinine 1.65 H (0.52-1.04) mg/dL Estimated GFR 34 L (>60) mL/min BUN/Creatinine Ratio 16.4 (6-22) Glucose 117 H (80-110) mg/dL Calcium 14.5 H* (8.4-10.2) mg/dL Magnesium 2.2 (1.6-2.3) mg/dL Total Bilirubin 1.9 H (0.2-1.3) mg/dL AST 39 H (14-36) IU/L ALT 16 (<35) IU/L Alkaline Phosphatase 127 H (38-126) U/L Total Creatine Kinase 28 L (30-135) U/L Troponin I 0.015 (0.01-0.034) ng/mL Total Protein 8.5 H (6.3-8.2) g/dL Albumin 4.6 (3.5-5.0) g/dL Globulin 3.9 (1.7-4.1) g/dL Albumin/Globulin Ratio 1.2 (1.0-2.8) Lipase 40 (23-300) U/L 25-OH Vitamin D Total 83.2 (30.0-100.0) ng/mL Urine RBC 0-1/hpf (0-5/HPF) Urine WBC 5-10/hpf H (0-5/HPF) Ur Squamous Epith Cells 0-1 /hpf (0-5/HPF) Amorphous Sediment 2+ Urine Bacteria Few (2-10) H (None) Ur Culture Indicated? Specimen cultured Vol Urine Centrifuged 10ml (spun) Urine Dip Bedside Urine Glucose Negative Bedside Urine Bilirubin - Negative Bedside Urine Ketone - Negative Urine Specific [place] 1.025 Bedside Urine Occult Blood - Negative Bedside Urine pH 5.5 Bedside Urine Protein +/- 15 Bedside Urine Urobilinogen - Negative Bedside Urine Leukocytes ++ 125 Esterase Imaging Data Chest x-ray: Radiologist's Impression: PROCEDURE: XR CHEST 1V INDICATIONS: chest pain TECHNIQUE: One view of the chest was acquired. COMPARISON: None. FINDINGS: Surgical changes and devices: None. Lungs and pleura: Lungs are clear. No pleural effusions or pneumothorax. Mediastinum: Mediastinal contours appear normal. Heart size is normal. Bones and chest wall: No suspicious bony lesions. Overlying soft tissues appear unremarkable. IMPRESSION: No acute cardiopulmonary abnormality is seen. Dictated by: Harsh Hand M.D. on 02/19/2024 at 15:50 ECG Data Attestation: I personally reviewed and interpreted this ECG as follows: Prior ECG tracings: available for review Interpretation: Sinus rhythm rate 81 WA interval 200 QRS 92 QTC 408 No significantly shortened QT, possibly Lange wave in lead 2 but no other leads MDM Narrative Medical decision making narrative: Patient is 68-year-old female presents today with abnormal lab value. Apparently she had some outside blood work and found to be hypercalcemic. She has been weak tired a little bit confused overall no complaints. She and her daughter we are getting some lunch. She is followed at [facility] and [facility]. Blood work has been reviewed no leukocytosis or anemia, sodium 136, potassium 3.2, BUN 27, creatinine 1.65 up slightly from baseline at 0.9, calcium 14.5, bilirubin 1.9, AST 39, ALT 16, alk-phos 127, CPK 28, troponin negative lipase 40 Imaging has been reviewed no acute cardiopulmonary process Given IV fluids and Lasix, consider bisphosphonate hospitalist said to hold off Dr. Holley in ED to see and evaluate patient and accepts Discharge Plan Departure Patient Disposition: Admitted as Observation Clinical Impression: Hypercalcemia of malignancy Admit Date/Time: 02/19/24 18:06 Admit Provider: Jose R Holley
[2024-02-19] MEDS: SODIUM CHLORIDE 0.9% 1,000 ML 1000 ML IV (17:05)
[2024-02-19] MEDS: FUROSEMIDE 40 MG/4 ML VIAL 20 MG IV (17:05)
--- NOTE | 2024-02-19 18:20 | PM.HP.1 ---
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 She has had progressive weakness for several months but worse over the last 2 weeks. She has also had some mental confusion, slow thinking, general lethargy and weakness. She was sent in by her doctor after blood tests revealed a high calcium. She has no history of hypercalcemia. She does note that a axilla lymph node biopsy revealed T for lymphoma. She is currently being enrolled in a clinical trial which may include chop therapy. She was followed at the [facility] as well as by local oncology at [place]. She denies fevers, chills, or night sweats. No weight loss. She has no knowledge of splenomegaly. She was also reported intermittent lower back pain which is bilateral. She does not believe she has had her chest and abdomen scanned and has no knowledge of splenomegaly. She was given IV fluids and diuretics in the emergency department for treatment of hypercalcemia. I met with her and her daughter. She is full resuscitation. [facility] Medical History HTN (hypertension) Surgical History S/P bilateral breast reduction History of tonsillectomy Social History Smoking Status: Unknown if ever smoked alcohol intake: current Meds Home Medications and Allergies Home Medications Medication Instructions Recorded Confirmed Type cyclobenzaprine 10 mg tablet 10 mg PO TID PRN muscle spasm #20 01/20/20 11/04/22 Rx tabs hydrocodone 5 mg-acetaminophen 325 1 tab PO Q4-6H PRN pain #20 tabs 03/27/23 Rx mg tablet ondansetron 4 mg disintegrating 4 mg PO TID-QID PRN nausea and 03/27/23 Rx tablet vomiting #10 tabs ondansetron 4 mg disintegrating 4 mg PO Q6H PRN nausea and 04/09/23 Rx tablet vomiting #20 tabs Allergies Allergy/AdvReac Type Severity Reaction Status Date / Time Sulfa (Sulfonamide Allergy Verified 03/26/23 18:57 Antibiotics) Review of Systems Review of Systems Narrative: All else reviewed and otherwise unremarkable except as noted in the history and physical. Exam Vital Signs (past 8 hours): - 02/19/24 14:45 02/19/24 15:02 02/19/24 15:04 Temperature 97.9 F Pulse Rate 61 90 Respiratory Rate 16 31 H 15 Blood Pressure 195/98 H Pulse Oximetry 100 97 Oxygen Delivery Method Room Air 02/19/24 15:04 02/19/24 15:30 02/19/24 15:30 Temperature Pulse Rate 84 Respiratory Rate 9 L Blood Pressure 203/95 H 164/79 H Pulse Oximetry 94 Oxygen Delivery Method 02/19/24 16:00 02/19/24 16:00 02/19/24 16:30 Temperature Pulse Rate 81 Respiratory Rate 15 Blood Pressure 164/82 H 172/84 H Pulse Oximetry 96 Oxygen Delivery Method 02/19/24 16:30 02/19/24 17:00 02/19/24 17:00 Temperature Pulse Rate 75 77 Respiratory Rate 17 14 Blood Pressure 179/86 H Pulse Oximetry 96 97 Oxygen Delivery Method Room Air Oxygen Delivery Method Room Air Narrative Exam Narrative: NAD, alert and oriented, fluent speech, calm. She appears chronically ill and somewhat lethargic. Normocephalic skull, EOMI, anicteric sclera, symmetric pupils. Oropharynx unremarkable, no droop. Neck supple, midline trachea, no adenopathy. Lungs clear, normal rate and effort. Heart regular, no murmur gallop or rub. Abdomen is soft, non distended and non tender. Extremities are free of edema. Skin is free of rash or lesions. Joints are not swollen or deformed. Judgment appears to be normal. Objective Imaging Chest x-ray: Radiologist's impression: Unremarkable. Labs 02/19/24 15:10 02/19/24 15:10 Labs: Laboratory Results - last 24 hr 02/19/24 02/19/24 15:09 15:10 WBC 7.6 RBC 4.44 Hgb 11.9 L Hct 35.4 L MCV 79.6 L MCH 26.9 MCHC 33.8 RDW 14.6 Plt Count 316 Neut % (Auto) 50.4 Lymph % (Auto) 25.9 [place] % (Auto) 20.3 H Eos % (Auto) 2.3 Baso % (Auto) 1.1 Neut # (Auto) 3800 Lymph # (Auto) 2000 [place] # (Auto) 1500 H Eos # (Auto) 200 Baso # (Auto) 100 PT 11.2 INR 1.0 APTT 35 Sodium 136 L Potassium 3.2 L Chloride 97 L Carbon Dioxide 32 BUN 27 H Creatinine 1.65 H Estimated GFR 34 L BUN/Creatinine Ratio 16.4 Glucose 117 H Calcium 14.5 H* Magnesium 2.2 Total Bilirubin 1.9 H AST 39 H ALT 16 Alkaline Phosphatase 127 H Total Creatine Kinase 28 L Troponin I 0.015 Total Protein 8.5 H Albumin 4.6 Globulin 3.9 Albumin/Globulin Ratio 1.2 Lipase 40 Urine RBC 0-1/hpf Urine WBC 5-10/hpf H Ur Squamous Epith Cells 0-1 /hpf Amorphous Sediment 2+ Urine Bacteria Few (2-10) H Ur Culture Indicated? Specimen cultured Vol Urine Centrifuged 10ml (spun) Assessment & Plan Assessment & Plan narrative: 1. Hypercalcemia associated with malignancy, present on admission and active. 2. T4 lymphoma, present on admission and active. 3. Back pain with concern for retroperitoneal lymphadenopathy, present on admission and active. 4. Untreated hypertension, present on admission and active. Plan: -IV fluids and diuretics, monitor calcium. We will likely add a bisphosphonate and calcitonin. -consider CT scan of chest and abdomen to further identify lymphadenopathy. Does have a chronic cough. -treat back pain with analgesia, and consider scan to rule out retroperitoneal adenopathy. -start amlodipine 5 mg daily 1st dose now. She is full resuscitation, her daughter is her proxy decision maker. She lives in [place], [place] Time Spent With Patient Time with patient: 30 to 49 minutes with 50% spent counseling/coordinating care Quality MIPS - Admit I confirm the patient?s Advance Care Plan is present, Code status is documented, Surrogate decision maker is in patient?s record [If Yes, STOP here]: Yes MIPS - Meds 'Current medications' to include all prescriptions, [id number] products, herbals, cannabis/cannabidiol products, and vitamin/mineral/dietary (nutritional) supplements. I have utilized all available resources to obtain, update, or review the patient?s current medications. [If Yes, STOP here]: Yes
[2024-02-19] MEDS: AMLODIPINE 5 MG TABLET PO (19:30)
[2024-02-19] MEDS: SODIUM CHLORIDE 0.9% 1,000 ML 125 ML IV (19:30)
[2024-02-19 20:28] LABS: Vitamin D 25 Hydroxy (D3) 83.2 ng/mL (30.0-100.0)
[2024-02-19] MEDS: HYDROCODONE/ACET 5/325 TABLET 1 TAB PO (23:07)
[2024-02-19] MEDS: HEPARIN 5,000 UNIT/ML VIAL 5000 UNIT SUBCUT (23:07)
[2024-02-19] MEDS: MAG HYDROX/ALUM/SIMETH 30 ML UDC PO (23:07)
[2024-02-20] MEDS: SODIUM CHLORIDE 0.9% 1,000 ML 125 ML IV ×3 (03:38→20:13)
[2024-02-20] MEDS: FUROSEMIDE 40 MG/4 ML VIAL IV ×3 (04:01→20:05)
[2024-02-20 06:02] LABS: Add Manual Diff / Slide Review NO; Basophils Absolute Auto 0 /uL (0-100); Eosinophils Absolute Auto 200 /uL (0-450); Eosinophils Percent Auto 5.9 % (2-4); Hematocrit 31.5 % (36-46); Hemoglobin 10.7 g/dL (12.0-16.0); Lymphocytes Absolute Auto 1000 /uL (1100-4500); Lymphocytes Percent Auto 23.6 % (25-40); Mean Corpuscular Hemoglobin 27.1 PG (26-34); Mean Corpuscular Volume 79.8 fL (80-100); Monocytes Absolute Auto 1000 /uL (0-900); Monocytes Percent Auto 23.6 % (3-14); Neutrophils Absolute Auto 1900 /uL (1500-7000); Neutrophils Percent Auto 45.9 % (50-75); Platelet Count 246 X10^3/uL (150-400); Red Blood Cell Count 3.95 X10^6/uL (4.0-5.2); Red Cell Distribution Width 14.6 % (11.6-14.8)
[2024-02-20 06:15] LABS: Alanine Aminotransferase 16 IU/L (<35); Alkaline Phosphatase 113 U/L (38-126); Aspartate Aminotransferase 38 IU/L (14-36); Blood Urea Nitrogen 25 mg/dL (7-17); Carbon Dioxide 34 mmol/L (22-32); Chloride 101 mmol/L (98-107); Glucose 106 mg/dL (80-110); HEMOLYSIS < 15 (0-50); Sodium 138 mmol/L (137-145)
[2024-02-20 06:16] LABS: Albumin Globulin Ratio 1.3 (1.0-2.8); Bilirubin Total 1.5 mg/dL (0.2-1.3); Estimated Glomerular Filt Rate 36 mL/min (>60); Globulin 3.2 g/dL (1.7-4.1); Total Protein 7.2 g/dL (6.3-8.2)
[2024-02-20 06:18] LABS: Calcium 13.4 mg/dL (8.4-10.2); Potassium 2.6 mmol/L (3.4-5.1)
[2024-02-20] MEDS: POTASSIUM CHLORIDE 20 MEQ TAB 30 MEQ PO ×2 (06:54→12:23)
[2024-02-20 07:00] VITALS: BP 185/94; PULSE 92; RESP 16; TEMP 36.3; O2SAT 95
--- NOTE | 2024-02-20 08:01 | P.PN_ITS ---
Subjective Subjective Interval history: She was admitted for hypercalcemia in context of lymphoma. She was started on IV fluids and diuretics. She will likely need zoledronic acid. Today: Feeling a little bit better. No back pain this morning. Chronic cough. No confusion. Exam Vital Signs (past 8 hours): Oxygen Delivery Method Room Air Oxygen Flow Rate 0 Narrative Exam Narrative: NAD, alert and oriented. Fluent speech. Dry lips and mouth. Lungs are clear, normal rate and effort. Heart is regular, no murmur gallop or rub. Abdomen is soft, non distended. Extremities are free of edema. Objective Labs 02/20/24 05:32 02/20/24 05:32 Labs: Laboratory Results - last 24 hr 02/19/24 02/19/24 02/20/24 15:09 15:10 05:32 WBC 7.6 4.0 L RBC 4.44 3.95 L Hgb 11.9 L 10.7 L Hct 35.4 L 31.5 L MCV 79.6 L 79.8 L MCH 26.9 27.1 MCHC 33.8 34.0 RDW 14.6 14.6 Plt Count 316 246 Neut % (Auto) 50.4 45.9 L Lymph % (Auto) 25.9 23.6 L [place] % (Auto) 20.3 H 23.6 H Eos % (Auto) 2.3 5.9 H Baso % (Auto) 1.1 1.0 Neut # (Auto) 3800 1900 Lymph # (Auto) 2000 1000 L [place] # (Auto) 1500 H 1000 H Eos # (Auto) 200 200 Baso # (Auto) 100 0 PT 11.2 INR 1.0 APTT 35 Sodium 136 L 138 Potassium 3.2 L 2.6 L* Chloride 97 L 101 Carbon Dioxide 32 34 H BUN 27 H 25 H Creatinine 1.65 H 1.56 H Estimated GFR 34 L 36 L BUN/Creatinine Ratio 16.4 16.0 Glucose 117 H 106 Calcium 14.5 H* 13.4 H* Magnesium 2.2 Total Bilirubin 1.9 H 1.5 H AST 39 H 38 H ALT 16 16 Alkaline Phosphatase 127 H 113 Total Creatine Kinase 28 L Troponin I 0.015 Total Protein 8.5 H 7.2 Albumin 4.6 4.0 Globulin 3.9 3.2 Albumin/Globulin Ratio 1.2 1.3 Lipase 40 25-OH Vitamin D Total 83.2 Urine RBC 0-1/hpf Urine WBC 5-10/hpf H Ur Squamous Epith Cells 0-1 /hpf Amorphous Sediment 2+ Urine Bacteria Few (2-10) H Ur Culture Indicated? Specimen cultured Vol Urine Centrifuged 10ml (spun) PFSH Medical History HTN (hypertension) Surgical History S/P bilateral breast reduction History of tonsillectomy Social History Smoking Status: Never smoker alcohol intake: current Assessment & Plan Assessment & Plan narrative: 1. Hypercalcemia associated with malignancy, present on admission and active. 2. T4 lymphoma, present on admission and active. 3. Back pain with concern for retroperitoneal lymphadenopathy, present on admission and active. 4. Untreated hypertension, present on admission and active. 5. Hypokalemia, present on admission and active. Plan: -IV fluids and diuretics, monitor calcium. -replace and monitor potassium -IV Zoledronic acid -SQ calcitonin -consider CT scan of chest and abdomen to further identify lymphadenopathy. Does have a chronic cough. -treat back pain with analgesia, and consider scan to rule out retroperitoneal adenopathy. -started amlodipine 5 mg daily at admission. Estimated date of discharge is 02/21. Quality VTE Deep Vein Thrombosis/Pulmonary Embolism Present on Admission: No
[2024-02-20] MEDS: CALCITONIN,SALMON 400 UNITS/2 ML MDV 250 UNITS SUBCUT (08:48)
[2024-02-20] MEDS: HEPARIN 5,000 UNIT/ML VIAL 5000 UNIT SUBCUT ×2 (08:49→20:05)
[2024-02-20] MEDS: ZOLEDRONIC ACID 4 MG in SODIUM CHLORIDE 0.9% 100 ML 315 MG IV (08:49)
[2024-02-20] MEDS: AMLODIPINE 5 MG TABLET 10 MG PO (08:49)
[2024-02-20] MEDS: ONDANSETRON 4 MG/2 ML INJ IV ×2 (09:44→17:32)
--- NOTE | 2024-02-20 10:22 | CM.DANOTE ---
Initial DCP Assessment Visit Note Reviewed EMR and team rounds for status updates. Met with pt at bedside to introduce self and role, she was in the middle of talking with family on the phone during this visit, so brief assessment only at this time. Pt resides independently in her own home in [place], she is in active cancer treatment with [facility] and [facility] for a newly diagnosed lymphoma. She was seen at [facility] yesterday, had labs drawn, and they directed her to go to the ED after seeing that she had abnormal bloodwork. Pt's proxy is her dtr, [email or web address]. Payor: [facility] PCP: Mamta Major Pt is a 68 year-old female who presented to the ED last evening after her Oncology team saw that she was hypercalcemic on labs that were drawn. She presented with some mental confusion, slower cognitive processing, and increased weakness. She was started on IV fluids and lasix, and today will receive additional tx as they are monitoring her calcium levels. She will likely need 1-more day in OBS before she is medically stable for d/c, per Hospitalist. DCP will continue to follow and assist with any support/resource needs that she has throughout her stay. Discharge Planning/Care Management CM Discharge Assessment Start: 02/20/24 10:17 Freq: Status: Active Protocol: Document 02/20/24 10:17 DPL (Rec: 02/20/24 10:19 DPL [id number]) Discharge Planning Assessment Assigned Home Connect Lpn DAVIN Menendez Advance Directives? No History Provided By Patient,Medical Record Has Patient been admitted in last 30 No days? Prior Living Arrangements House Household Members none Type of transporation used prior to Drives own vehicle admit Independent with ADL's Yes Is patient alert and oriented? Yes Caregiver for Another No Comment OP Oncology in active treatment Comment No identified d/c needs at this time. Barriers to Discharge No Discharge Plan Home Referrals Initiated None needed Whiteboard Updated in Patient Room with Yes name and ext. # of Home Connect Lpn Review Status In Process Please Provide Date Initial DC 02/20/24 Assessment Was Performed
[2024-02-20 12:00] VITALS: BP 147/80; PULSE 83; RESP 16; TEMP 36.3; O2SAT 99
[2024-02-20 15:18] LABS: HEMOLYSIS < 15 (0-50)
[2024-02-20] MEDS: METOCLOPRAMIDE 10 MG/2 ML INJ 5 MG IV (16:30)
[2024-02-20] MEDS: POTASSIUM CHLORIDE IN WATER 10 MEQ/100 ML PIGGYBACK 100 MEQ IV ×4 (16:30→19:31)
[2024-02-20 19:41] VITALS: BP 145/76; PULSE 81; RESP 18; TEMP 36.6; O2SAT 94
[2024-02-21] MEDS: SODIUM CHLORIDE 0.9% 1,000 ML 125 ML IV ×3 (03:54→21:26)
[2024-02-21] MEDS: FUROSEMIDE 40 MG/4 ML VIAL IV ×3 (04:14→21:25)
[2024-02-21 05:55] LABS: Add Manual Diff / Slide Review NO; Basophils Absolute Auto 100 /uL (0-100); Eosinophils Absolute Auto 200 /uL (0-450); Eosinophils Percent Auto 3.4 % (2-4); Hematocrit 33.9 % (36-46); Hemoglobin 11.4 g/dL (12.0-16.0); Lymphocytes Absolute Auto 1200 /uL (1100-4500); Lymphocytes Percent Auto 22.8 % (25-40); Mean Corpuscular HGB Conc 33.8 % (30-36); Monocytes Absolute Auto 1200 /uL (0-900); Monocytes Percent Auto 21.6 % (3-14); Neutrophils Absolute Auto 2800 /uL (1500-7000); Neutrophils Percent Auto 51.2 % (50-75); Platelet Count 261 X10^3/uL (150-400); Red Blood Cell Count 4.24 X10^6/uL (4.0-5.2); Red Cell Distribution Width 14.4 % (11.6-14.8); White Blood Cell Count 5.4 X10^3/uL (4.5-11.0)
[2024-02-21 06:06] LABS: Alanine Aminotransferase 17 IU/L (<35); Albumin 4.3 g/dL (3.5-5.0); Albumin Globulin Ratio 1.3 (1.0-2.8); Alkaline Phosphatase 107 U/L (38-126); Aspartate Aminotransferase 38 IU/L (14-36); BUN Creatinine Ratio 14.7 (6-22); Bilirubin Total 1.4 mg/dL (0.2-1.3); Blood Urea Nitrogen 23 mg/dL (7-17); Calcium 11.3 mg/dL (8.4-10.2); Carbon Dioxide 33 mmol/L (22-32); Chloride 103 mmol/L (98-107); Estimated Glomerular Filt Rate 36 mL/min (>60); Globulin 3.4 g/dL (1.7-4.1); Glucose 128 mg/dL (80-110); HEMOLYSIS < 15 (0-50); Potassium 2.9 mmol/L (3.4-5.1); Sodium 140 mmol/L (137-145); Total Protein 7.7 g/dL (6.3-8.2)
[2024-02-21 07:00] VITALS: BP 136/60; PULSE 79; RESP 16; TEMP 36.4; O2SAT 99
[2024-02-21] MEDS: HEPARIN 5,000 UNIT/ML VIAL 5000 UNIT SUBCUT ×2 (08:14→21:25)
[2024-02-21] MEDS: ONDANSETRON 4 MG/2 ML INJ IV ×2 (08:14→16:33)
[2024-02-21] MEDS: AMLODIPINE 5 MG TABLET 10 MG PO (08:15)
[2024-02-21 08:20] LABS: Magnesium 1.8 mg/dL (1.6-2.3)
--- NOTE | 2024-02-21 08:37 | P.PN_ITS ---
Subjective Subjective Interval history: Feeling better, less weak. No confused. Her uric acid is elevated on her portal from the [place], around 11. No dyspnea. Her pain is only in her buttucks. Potassium is low, 2.9. Renal function is improved. Exam Vital Signs (past 8 hours): - 02/21/24 07:00 Temperature 97.5 F L Pulse Rate 79 Respiratory Rate 16 Blood Pressure 136/60 Pulse Oximetry 99 Oxygen Delivery Method Room Air Oxygen Flow Rate 0 Narrative Exam Narrative: NAD, alert and oriented. Fluent speech. Lungs are clear, normal rate and effort. Heart is regular, no murmur gallop or rub. Abdomen is soft, non distended. Extremities are free of edema. Objective Labs 02/21/24 05:42 02/21/24 05:42 Labs: Laboratory Results - last 24 hr 02/20/24 02/21/24 15:00 05:42 WBC 5.4 RBC 4.24 Hgb 11.4 L Hct 33.9 L MCV 80.0 MCH 27.0 MCHC 33.8 RDW 14.4 Plt Count 261 Neut % (Auto) 51.2 Lymph % (Auto) 22.8 L [place] % (Auto) 21.6 H Eos % (Auto) 3.4 Baso % (Auto) 1.0 Neut # (Auto) 2800 Lymph # (Auto) 1200 [place] # (Auto) 1200 H Eos # (Auto) 200 Baso # (Auto) 100 Sodium 140 Potassium 3.0 L 2.9 L Chloride 103 Carbon Dioxide 33 H BUN 23 H Creatinine 1.56 H Estimated GFR 36 L BUN/Creatinine Ratio 14.7 Glucose 128 H Calcium 11.3 H Magnesium 1.8 Total Bilirubin 1.4 H AST 38 H ALT 17 Alkaline Phosphatase 107 Total Protein 7.7 Albumin 4.3 Globulin 3.4 Albumin/Globulin Ratio 1.3 PFS Medical History HTN (hypertension) Surgical History S/P bilateral breast reduction History of tonsillectomy Social History household members: none Smoking Status: Never smoker alcohol intake: current Assessment & Plan Assessment & Plan narrative: 1. Hypercalcemia associated with malignancy, present on admission and active. 2. T4 lymphoma, present on admission and active. 3. Back pain with concern for retroperitoneal lymphadenopathy, present on admission and active. 4. Untreated hypertension, present on admission and active. 5. Hypokalemia, present on admission and active. 6. High uric acid, present on admission and active. Plan: -continue IV fluids and diuretics, monitor calcium. -replace and monitor potassium, another 60 mEq today -IV Zoledronic acid, started 02/19 -SQ calcitonin, started 02/19. -consider CT scan of chest and abdomen to further identify lymphadenopathy. Does have a chronic cough. Thursday after K corrected. -treat back pain with analgesia, and consider scan to rule out retroperitoneal adenopathy. -started amlodipine 5 mg daily at admission. -start allopurinol. Estimated date of discharge is 02/21. Quality VTE Deep Vein Thrombosis/Pulmonary Embolism Present on Admission: No
[2024-02-21] MEDS: POTASSIUM CHLORIDE IN WATER 10 MEQ/100 ML PIGGYBACK 100 MEQ IV ×6 (09:02→14:26)
[2024-02-21] MEDS: allopurinoL 100 MG TABLET PO (12:31)
[2024-02-21] MEDS: METOCLOPRAMIDE 10 MG/2 ML INJ 5 MG IV (13:18)
[2024-02-21 16:40] LABS: HEMOLYSIS < 15 (0-50); Magnesium 1.7 mg/dL (1.6-2.3)
[2024-02-21 19:00] VITALS: BP 132/49; PULSE 81; RESP 16; TEMP 37.7; O2SAT 94
[2024-02-21] MEDS: BENZONATATE 100 MG CAPSULE PO (21:25)
[2024-02-21] MEDS: ACYCLOVIR 400 MG TABLET PO (21:25)
--- NOTE | 2024-02-21 22:45 | PC.NURSE ---
Patient is alert and oriented. Breath sounds CTA with RA sat of 94%. HRR and BP more controlled at 132/49 after starting Amlodipine. Denied nausea. BT present and is passing flatus but concerned about her bowels as last BM was . Is voiding frequently related to use of Lasix and reports she is often incontinent of urine. Is getting up to BSC to void but requesting external catheter at 0000 so that she can sleep during the night. Denies any dysuria with urination. Is able to turn herself in bed. Up to bathroom with SBA and had a shower but needed to sit down when in shower due to weakness. Genital lesions noted in perineum and skin in reddened between urethra and anus; tender to touch. Placed on contact isolation related to herpes. Also has cold sore on right corner of mouth. Refuses SCD's so reminded to ankle wave when awake. Fall risk score is moderate and alarm in use at night. Denied any pain.
[2024-02-22 05:05] VITALS: TEMP 36.2
[2024-02-22] MEDS: SODIUM CHLORIDE 0.9% 1,000 ML 125 ML IV ×2 (05:09→12:30)
[2024-02-22 05:22] LABS: Add Manual Diff / Slide Review NO; Basophils Absolute Auto 100 /uL (0-100); Basophils Percent Auto 1.3 % (0-2); Eosinophils Absolute Auto 300 /uL (0-450); Eosinophils Percent Auto 4.8 % (2-4); Hemoglobin 10.5 g/dL (12.0-16.0); Lymphocytes Absolute Auto 1400 /uL (1100-4500); Lymphocytes Percent Auto 25.8 % (25-40); Mean Corpuscular HGB Conc 33.8 % (30-36); Mean Corpuscular Hemoglobin 26.9 PG (26-34); Mean Corpuscular Volume 79.5 fL (80-100); Monocytes Absolute Auto 1100 /uL (0-900); Monocytes Percent Auto 21.4 % (3-14); Neutrophils Absolute Auto 2500 /uL (1500-7000); Neutrophils Percent Auto 46.7 % (50-75); Platelet Count 254 X10^3/uL (150-400); Red Blood Cell Count 3.89 X10^6/uL (4.0-5.2); Red Cell Distribution Width 14.5 % (11.6-14.8); White Blood Cell Count 5.4 X10^3/uL (4.5-11.0)
[2024-02-22 05:36] LABS: Alanine Aminotransferase 14 IU/L (<35); Albumin 3.9 g/dL (3.5-5.0); Albumin Globulin Ratio 1.3 (1.0-2.8); Alkaline Phosphatase 110 U/L (38-126); Aspartate Aminotransferase 37 IU/L (14-36); BUN Creatinine Ratio 15.4 (6-22); Bilirubin Total 1.3 mg/dL (0.2-1.3); Blood Urea Nitrogen 22 mg/dL (7-17); Calcium 10.3 mg/dL (8.4-10.2); Carbon Dioxide 30 mmol/L (22-32); Chloride 102 mmol/L (98-107); Estimated Glomerular Filt Rate 40 mL/min (>60); Glucose 114 mg/dL (80-110); HEMOLYSIS < 15 (0-50); Sodium 136 mmol/L (137-145); Total Protein 6.9 g/dL (6.3-8.2)
[2024-02-22 08:00] VITALS: BP 115/45; PULSE 78; RESP 16; TEMP 36.1; O2SAT 95
[2024-02-22] MEDS: FUROSEMIDE 40 MG/4 ML VIAL IV (08:23)
[2024-02-22] MEDS: HEPARIN 5,000 UNIT/ML VIAL 5000 UNIT SUBCUT (08:23)
[2024-02-22] MEDS: POTASSIUM CHLORIDE 20 MEQ TAB 40 MEQ PO ×2 (08:24→14:09)
[2024-02-22] MEDS: BENZONATATE 100 MG CAPSULE PO ×2 (08:24→14:08)
[2024-02-22] MEDS: AMLODIPINE 5 MG TABLET 10 MG PO (08:24)
[2024-02-22] MEDS: ACYCLOVIR 400 MG TABLET PO (08:25)
[2024-02-22] MEDS: allopurinoL 100 MG TABLET PO (08:25)
[2024-02-22] MEDS: MAGNESIUM CHLORIDE 64 MG TABLET 128 MG PO (08:34)
[2024-02-22 10:07] VITALS: TEMP 36.7
[2024-02-22 10:11] LABS: Uric Acid 9.2 mg/dL (2.5-6.2)
[2024-02-22] MEDS: predniSONE 20 MG TABLET 50 MG PO (10:38)
[2024-02-22] MEDS: ACETAMINOPHEN 325 MG TABLET 650 MG PO (12:36)
--- NOTE | 2024-02-22 13:39 | PM.DS.1 ---
History of Present Illness History of Present Illness Chief complaint: cancer pt, Calcium levels high, sent by Narrative: The patient is a 68-year-old female with a history of untreated hypertension, and a recent diagnosis of a T4 lymphoma in December of this year. She has had progressive weakness for several months but worse over the last 2 weeks. She has also had some mental confusion, slow thinking, general lethargy and weakness. She was sent in by her doctor after blood tests revealed a high calcium. She has no history of hypercalcemia. She does note that a axilla lymph node biopsy revealed T for lymphoma. She is currently being enrolled in a clinical trial which may include chop therapy. She was followed at the [facility] as well as by local oncology at [place]. She denies fevers, chills, or night sweats. No weight loss. She has no knowledge of splenomegaly. She was also reported intermittent lower back pain which is bilateral. She does not believe she has had her chest and abdomen scanned and has no knowledge of splenomegaly. She was given IV fluids and diuretics in the emergency department for treatment of hypercalcemia. I met with her and her daughter. She is full resuscitation. Discharge Providers Provider Date of admission: 02/19/24 18:06 Discharge Date: 02/22/24 Primary care physician: Mamta Major Consults: Telephone consultation with Dr. Davies, her primary lymphoma oncologist at the [facility]. Discharge provider: Jose R Holley MD Summary Hospital Course Discharge Diagnosis: 1. Hypercalcemia associated with malignancy, present on admission and improved. 2. T4 lymphoma, present on admission and active. 3. Back pain with concern for retroperitoneal lymphadenopathy, present on admission and active. 4. Untreated hypertension, present on admission and active. 5. Hypokalemia, present on admission and improved. 6. High uric acid, present on admission and active. Hospital Course: She was admitted with weakness and found to have uncontrolled hypertension and severe hypercalcemia. She was a recent diagnosis of a T4 lymphoma. Her uric acid is also elevated. She was treated with IV fluids and forced diuresis as well as zoledronic acid IV x1. She also required ongoing repletion of hypokalemia over the next 2 days of hospitalization. Weakness and general mental slowness improved. Her calcium corrected to 10. On the day of discharge her case was discussed at length with her oncologist, Dr. Davies. She will be discharged with close lab follow up on Thursday and Thursday as well as starting allopurinol. We will also start her on amlodipine for her untreated chronic hypertension. He did also request prednisone 50 mg daily for 5 days, 1st dose was given here on February 21 with an additional 4 days sent to the pharmacy. Status at Discharge Cognitive/behavioral status at discharge: oriented Functional status at discharge: uses cane/walker Overall status at discharge: patient is back to baseline Time Spent with Patient Time spent: Greater than 30 minutes Exam Vital Signs (past 8 hours): - 02/22/24 08:00 02/22/24 10:07 Temperature 96.9 F L 98.0 F Pulse Rate 78 Respiratory Rate 16 Blood Pressure 115/45 L Pulse Oximetry 95 Oxygen Flow Rate 0 Oxygen Delivery Method Room Air Oxygen Flow Rate 0 Narrative Exam Narrative: NAD, alert and oriented. Fluent speech. Lungs are clear, normal rate and effort. Heart is regular, no murmur gallop or rub. Abdomen is soft, non distended. Extremities are free of edema. Objective Labs 02/22/24 05:08 02/22/24 05:08 Labs: Laboratory Results - last 24 hr 02/21/24 02/22/24 16:23 05:08 WBC 5.4 RBC 3.89 L Hgb 10.5 L Hct 31.0 L MCV 79.5 L MCH 26.9 MCHC 33.8 RDW 14.5 Plt Count 254 Neut % (Auto) 46.7 L Lymph % (Auto) 25.8 [place] % (Auto) 21.4 H Eos % (Auto) 4.8 H Baso % (Auto) 1.3 Neut # (Auto) 2500 Lymph # (Auto) 1400 [place] # (Auto) 1100 H Eos # (Auto) 300 Baso # (Auto) 100 Sodium 136 L Potassium 4.0 3.0 L Chloride 102 Carbon Dioxide 30 BUN 22 H Creatinine 1.43 H Estimated GFR 40 L BUN/Creatinine Ratio 15.4 Glucose 114 H Uric Acid 9.2 H Calcium 10.3 H Magnesium 1.7 Total Bilirubin 1.3 AST 37 H ALT 14 Alkaline Phosphatase 110 Total Protein 6.9 Albumin 3.9 Globulin 3.0 Albumin/Globulin Ratio 1.3 [facility] Medical History HTN (hypertension) Surgical History S/P bilateral breast reduction History of tonsillectomy Social History household members: none Smoking Status: Never smoker alcohol intake: current Discharge Assessment & Plan Assessment and Plan Assessment: 1. Hypercalcemia associated with malignancy, present on admission and improved. 2. T4 lymphoma, present on admission and active. 3. Back pain with concern for retroperitoneal lymphadenopathy, present on admission and active. 4. Untreated hypertension, present on admission and active. 5. Hypokalemia, present on admission and improved. 6. High uric acid, present on admission and active. Plan of Treatment: Discharge with close lab follow up on Thursday and Thursday. We will also give her 5 days of oral potassium and Zofran for nausea. Allopurinol 300 daily is started per Dr. Davies's request and prednisone 50 a day for 5 days he was also provided. Discharge Plan Discharge Plan Patient Disposition: Home Provider Discharge Comment: Stable for discharge home. Had been discussing case with her primary oncologist at [facility], Dr. Davies. She will be started on allopurinol per his request and we will have labs every Thursday and Thursday. They will contact her with lab location and next steps for her oncologic care. Discharge orders & Medications Prescriptions: New prednisone 50 mg tablet 50 mg PO DAILY Qty: 4 0RF allopurinol 300 mg tablet 300 mg PO DAILY Qty: 30 1RF amlodipine 10 mg tablet 10 mg PO DAILY Qty: 30 2RF potassium chloride 10 mEq capsule, extended release 10 meq PO DAILY Qty: 7 0RF Continued acyclovir 400 mg Tablet 400 mg PO BID benzonatate 100 mg Capsule 100 mg PO TID Medication counseling provided by Pharmacist: No Follow up/Referrals: Mamta Major PA-C [Primary Care Provider] - Discharge Health Status Multidrug resistant organism: No MDRO Diet/Activity/Treatments Diet: Diet as Tolerated Activity: As tolerated. Skin/Wound/Dressing Care Report to your healthcare provider any signs of infection, such as:: chills, fever, night sweats and increased pain Visit Report/Discharge Packet Instructions: DI for Hypercalcemia Stand Alone Forms: Patient Portal/API Discharge Data Primary Care Provider: Mamta Major Quality VTE Deep Vein Thrombosis/Pulmonary Embolism Present on Admission: No
--- NOTE | 2024-02-22 14:26 | CM.DPC ---
DCP Discharge Home Per MD, consulted with pt's Oncologist and recommendation of additional labs this morning and then can discharge home today with close f/u with her Oncologist. Per RN, no concerns noted at this time and discharge instructions to be provided. Plan: Patient to discharge home today via Dtr POV and close outpt f/u with PCP and Onc and no further SW needs at this time. DAVIN Jain
[2024-02-22] MEDS: MAG HYDROX/ALUM/SIMETH 30 ML UDC PO (14:45)
--- NOTE | 2024-02-22 15:57 | PC.NURSE ---
Dayshift: Discharge instructions reviewed with patient and friend by LAURA Arora, all questions answered. Pt left with all belongings. LAURA Arora escorted patient to exit via wheelchair. PIV d/c'ed.
[2024-02-23 18:57] LABS: Parathyroid Hormone, Intact 7 pg/mL (15-65)
== END 2024-02-22 13:30 | disposition home or self-care (01) | DRG 641 ==
LOC: ED 16:24 → AC 20:06
PROVIDERS: Admitting Provider Hospitalist; Emergency Provider Emergency Medicine; PCP Physician Assistant; Referring Provider Emergency Medicine; Visit Provider Hospitalist
DX: E83.52 Hypercalcemia (principal); C85.94 Non-Hodgkin lymphoma, unspecified, lymph nodes of axilla and upper limb; I10 Essential (primary) hypertension; E87.6 Hypokalemia; R59.0 Localized enlarged lymph nodes; M54.9 Dorsalgia, unspecified; E79.0 Hyperuricemia without signs of inflammatory arthritis and tophaceous disease
CPT/HCPCS: 36415; 71045; 80053; 81003; 81015; 82306; 82310; 82397; 82550; 83690; 83735; 83970; 84132; 84484; 84550; 85025; 85610; 85730; 87086; 93005; 96374; 99284; J0630; J1644; J1940; J2405; J2765; J3489